=== PATIENT | female | born 1945 | race Caucasian/White ===

== ENCOUNTER → 2018-01-17 09:24 | Outpatient (CLI) | payer MEDICARE, OTHER, SELFPAY ==
[2018-01-17 10:34] LABS: Hemoglobin A1C% w Est Avg Glu 10.4 % (4.0-6.0)
[2018-01-17 11:27] LABS: Alanine Aminotransferase 15 IU/L (9-52); Aspartate Aminotransferase 12 IU/L (14-36); BUN Creatinine Ratio 21.8 (6-22); Blood Urea Nitrogen 24 mg/dL (7-17); Calcium 9.3 mg/dL (8.4-10.2); Carbon Dioxide 24 mmol/L (22-32); Chloride 101 mmol/L (98-107); Cholesterol 199 mg/dL (140-199); Glucose 204 mg/dL (80-110); HDL Cholesterol 51 mg/dL (40-60); HEMOLYSIS < 15 (0-50); LDL Cholesterol Calculated 98 mg/dL (<100); Potassium 4.9 mmol/L (3.4-5.1); Sodium 139 mmol/L (137-145); Triglycerides 248 mg/dL (35-150)
== END ==
PROVIDERS: Family Provider Internal Medicine; PCP Internal Medicine; Visit Provider Internal Medicine
DX: I10 Essential (primary) hypertension (principal); E11.9 Type 2 diabetes mellitus without complications; E78.5 Hyperlipidemia, unspecified
CPT/HCPCS: 36415; 80048; 80061; 83036; 84450; 84460

== ENCOUNTER → 2018-02-16 13:50 | Outpatient (CLI) | payer MEDICARE, OTHER, SELFPAY | PROVIDERS: PCP Internal Medicine; Visit Provider Internal Medicine | DX: M81.0 Age-related osteoporosis without current pathological fracture (principal); Z78.0 Asymptomatic menopausal state; E11.9 Type 2 diabetes mellitus without complications | CPT/HCPCS: 77080 ==

== ENCOUNTER → 2018-04-20 09:35 | Outpatient (CLI) | payer MEDICARE, OTHER, SELFPAY ==
[2018-04-20 10:27] LABS: Alanine Aminotransferase 18 IU/L (9-52); Aspartate Aminotransferase 12 IU/L (14-36); Blood Urea Nitrogen 30 mg/dL (7-17); Calcium 9.3 mg/dL (8.4-10.2); Carbon Dioxide 19 mmol/L (22-32); Chloride 107 mmol/L (98-107); Cholesterol 200 mg/dL (140-199); Estimated Glomerular Filt Rate 44.2 mL/min (>60); Glucose 183 mg/dL (80-110); HDL Cholesterol 50 mg/dL (40-60); HEMOLYSIS < 15 (0-50); LDL Cholesterol Calculated 115 mg/dL (<100); Sodium 137 mmol/L (137-145); Triglycerides 175 mg/dL (35-150)
[2018-04-20 10:30] LABS: Hemoglobin A1C% w Est Avg Glu 6.9 % (4.0-6.0)
[2018-04-20 11:08] LABS: Potassium 5.5 mmol/L (3.4-5.1)
== END ==
PROVIDERS: PCP Internal Medicine; Visit Provider Internal Medicine
DX: E78.5 Hyperlipidemia, unspecified (principal); E11.9 Type 2 diabetes mellitus without complications; I10 Essential (primary) hypertension
CPT/HCPCS: 36415; 80048; 80061; 83036; 84450; 84460

== ENCOUNTER → 2018-12-11 10:21 | Outpatient (CLI) | payer MEDICARE, OTHER, SELFPAY ==
[2018-12-11 11:32] LABS: Hemoglobin A1C% w Est Avg Glu 7.1 % (4.0-6.0)
[2018-12-11 12:05] LABS: Alanine Aminotransferase 8 IU/L (9-52); Aspartate Aminotransferase 15 IU/L (14-36); BUN Creatinine Ratio 22.3 (6-22); Blood Urea Nitrogen 29 mg/dL (7-17); Calcium 9.8 mg/dL (8.4-10.2); Carbon Dioxide 18 mmol/L (22-32); Chloride 111 mmol/L (98-107); Cholesterol 145 mg/dL (140-199); Estimated Glomerular Filt Rate 40.3 mL/min (>60); Glucose 126 mg/dL (80-110); HDL Cholesterol 43 mg/dL (40-60); HEMOLYSIS < 15 (0-50); LDL Cholesterol Calculated 69 mg/dL (<100); Sodium 140 mmol/L (137-145); Triglycerides 163 mg/dL (35-150)
[2018-12-11 12:21] LABS: Potassium 5.9 mmol/L (3.4-5.1)
== END ==
PROVIDERS: PCP Internal Medicine; Visit Provider Internal Medicine
DX: I10 Essential (primary) hypertension (principal); E78.5 Hyperlipidemia, unspecified; E11.9 Type 2 diabetes mellitus without complications
CPT/HCPCS: 36415; 80048; 80061; 83036; 84450; 84460

== ENCOUNTER → 2019-09-25 11:25 | Outpatient (CLI) | payer MEDICARE, OTHER, SELFPAY ==
[2019-09-25 13:17] LABS: Hemoglobin A1C% w Est Avg Glu 7.1 % (4.0-6.0)
[2019-09-25 13:25] LABS: Alanine Aminotransferase 8 IU/L (<35); Albumin 4.1 g/dL (3.5-5.0); Albumin Globulin Ratio 1.5 (1.0-2.8); Alkaline Phosphatase 82 U/L (38-126); Aspartate Aminotransferase 15 IU/L (14-36); BUN Creatinine Ratio 19.3 (6-22); Bilirubin Total 0.4 mg/dL (0.2-1.3); Blood Urea Nitrogen 26 mg/dL (7-17); Calcium 9.6 mg/dL (8.4-10.2); Carbon Dioxide 25 mmol/L (22-32); Chloride 105 mmol/L (98-107); Cholesterol 172 mg/dL (140-199); Estimated Glomerular Filt Rate 38.4 mL/min (>60); Globulin 2.7 g/dL (1.7-4.1); Glucose 167 mg/dL (80-110); HDL Cholesterol 53 mg/dL (40-60); HEMOLYSIS < 15 (0-50); LDL Cholesterol Calculated 77 mg/dL (<100); Sodium 139 mmol/L (137-145); Total Protein 6.8 g/dL (6.3-8.2); Triglycerides 212 mg/dL (35-150)
[2019-09-25 13:28] LABS: Potassium 5.8 mmol/L (3.4-5.1)
== END ==
PROVIDERS: PCP Internal Medicine; Referring Provider Internal Medicine; Visit Provider Internal Medicine
DX: E11.21 Type 2 diabetes mellitus with diabetic nephropathy (principal); I10 Essential (primary) hypertension; E78.5 Hyperlipidemia, unspecified
CPT/HCPCS: 36415; 80053; 80061; 83036; 86900; 86901

== ENCOUNTER 2021-04-10 20:44 | Emergency (ER) | payer MEDICARE, OTHER, SELFPAY ==
[2021-04-10 20:54] VITALS: BP 206/89; PULSE 91; RESP 16; TEMP 36.9; O2SAT 97; BMI 31.1
--- NOTE | 2021-04-10 21:14 | ED_ITS ---
HPI - Recheck/Abnormal Lab/Rx General Chief Complaint: Recheck/Abnormal Lab/Rx Stated Complaint: high potassium, sent by nurse Time Seen by Provider: 04/10/21 21:00 History of Present Illness HPI narrative: 75-year-old female nonsmoker with history of solitary kidney presents at the request of her primary care team for evaluation and treatment of elevated potassium. The patient reports that she has been asymptomatic and continues to be asymptomatic. She had outpatient labs which initially reported a potassium over 6. She denies dizziness, weakness or lightheadedness. She denies chest pain, shortness of breath. She has had no nausea, vomiting or diarrhea, she has had no urinary complaints such as dysuria, frequency or urgency She denies any extremity cramping. She states that she had a slightly different diet in the days prior to her abnormal labs which she questions may have contributed. She was sent here for evaluation. Review of Systems Review of Systems Narrative: GENERAL: Denies chills, fatigue, malaise, fever, sweats. HEENT: Denies sinus pain, ear pain, sore throat, difficulty swallowing, dizziness. RESPIRATORY: Denies dyspnea, cough, wheezing, hemoptysis, sputum. CARDIOVASCULAR: Denies chest pain, palpitations, orthopnea, edema, GASTROINTESTINAL: Denies nausea, vomiting, abdominal pain, diarrhea, constipation, melena. : Denies dysuria, frequency, incontinence, hematuria, urinary retention. MUSCULOSKELETAL: denies weakness, joint pain, or bony pain SKIN: Denies rash, skin lesions, or other NEUROLOGIC: Denies weakness, headache, numbness, change in speech, confusion, seizures, incoordination. PSYCHIATRIC: No concerning psychosocial issues. 12 point review of systems is negative except for those stated above Patient History Social History Smoking Status: Never smoker Smoking Status: Never smoker alcohol intake frequency: holidays/special occasions only Substance Use Type: does not use Exam Narrative Exam Narrative: GENERAL: [75] year old patient appears stated age. Well-developed patient, in mild distress. HEAD: Atraumatic. Normocephalic. EYES: Pupils equal round and reactive. Extraocular motions intact. No scleral icterus. No injection or drainage. ENT: Nose without bleeding, purulent drainage. Throat without erythema, tonsillar hypertrophy or exudate. Airway patent. NECK: Trachea midline. Non tender CARDIOVASCULAR: Regular rate and rhythm without murmurs, gallops, or rubs. RESPIRATORY: Clear to auscultation. Breath sounds equal bilaterally. No wheezes, rales, or rhonchi. GASTROINTESTINAL: Abdomen soft, non-tender, nondistended. EXTREMITIES: No edema or joint tenderness. BACK: Nontender without deformity or crepitance. No flank tenderness. NEURO: AOx3. SKIN: No rash or erythema of visible areas Initial Vital Signs Initial Vital Signs: Vital Signs Temperature 98.4 F 04/10/21 20:54 Pulse Rate 91 H 04/10/21 20:54 Respiratory Rate 16 04/10/21 20:54 Blood Pressure 206/89 H 04/10/21 20:54 Pulse Oximetry 97 04/10/21 20:54 Course Orders Ordered: ED Orders 04/10/21 21:07 CMP [Comprehensive Metabolic Panel] Stat Complete Blood Count AUTO DIFF Stat 04/10/21 21:24 EKG-12 Lead Stat Vital Signs Vital signs: Vital Signs - 8 hr 04/10/21 20:54 Temperature 98.4 F Pulse Rate 91 H Respiratory Rate 16 Blood Pressure 206/89 H Pulse Oximetry 97 MDM - Recheck/Abnormal Lab/Rx Lab Data Result diagrams: 04/10/21 21:07 04/10/21 21:07 Labs: Lab Results 04/10/21 04/10/21 Range/Units 21:07 21:07 WBC 9.1 (4.5-11.0) X10^3/uL RBC 3.60 L (4.0-5.2) X10^6/uL Hgb 7.8 L (12.0-16.0) g/dL Hct 25.3 L (36-46) % MCV 70.1 L (80-100) fL MCH 21.7 L (26-34) PG MCHC 30.9 (30-36) % RDW 17.5 H (11.6-14.8) % Plt Count 371 (150-400) X10^3/uL Neut % (Auto) 74.7 (50-75) % Lymph % (Auto) 15.4 L (25-40) % [place] % (Auto) 6.0 (3-14) % Eos % (Auto) 1.8 L (2-4) % Baso % (Auto) 2.1 H (0-2) % Neut # (Auto) 6800 (5063-3726) /uL Lymph # (Auto) 1400 (5858-4098) /uL [place] # (Auto) 500 (0-900) /uL Eos # (Auto) 200 (0-450) /uL Baso # (Auto) 200 H (0-100) /uL Sodium 136 L (137-145) mmol/L Potassium 5.4 H (3.4-5.1) mmol/L Chloride 107 (98-107) mmol/L Carbon Dioxide 23 (22-32) mmol/L BUN 27 H (7-17) mg/dL Creatinine 1.48 H (0.52-1.04) mg/dL Estimated GFR 34.5 L (>60) mL/min BUN/Creatinine Ratio 18.2 (6-22) Glucose 258 H (80-110) mg/dL Calcium 8.8 (8.4-10.2) mg/dL Total Bilirubin 0.2 (0.2-1.3) mg/dL AST 16 (14-36) IU/L ALT 9 (<35) IU/L Alkaline Phosphatase 72 (38-126) U/L Total Protein 7.4 (6.3-8.2) g/dL Albumin 4.3 (3.5-5.0) g/dL Globulin 3.1 (1.7-4.1) g/dL Albumin/Globulin Ratio 1.4 (1.0-2.8) MDM Narrative Medical decision making narrative: Patient has very reassuring history and physical exam. She has been asymptomatic and continues to be. EKG shows no suggestion of hyperkalemia. R epeat serum potassium is only 5.4, remainder of labs unremarkable. There is no indication for treatment of potassium at this level. Extensive return precautions discussed, questions answered to her apparent satisfaction Discharge Plan Departure Patient Disposition: Home Clinical Impression: Feared complaint without diagnosis Instructions: DI for Hyperkalemia Activity Restrictions/Additional Instructions: *You have been diagnosed with [very mild hyperkalemia. No treatment indicated *What to do: *Please continue to take your regular medications as directed. [ ] New medication prescriptions sent to your pharmacy: [ ] [ ] New medication written as a paper prescription [ ] No new medications given *Please follow up with your primary care provider in 2-3 days, call for an appointment. Let them know you were seen in the Emergency Department and that we ask that you be seen in follow up. We will electronically transmit a record of today's note if your PCP is in our system *If you do not have a primary care provider please contact the [facility] Resource line at [phone]. They will ask some questions about your medical history and help get you set up with a doctor in the community. *Return to Emergency Department if you should have any new, worsening or concerning symptoms, such as [fever greater than 101 F, shaking chills, worseni ng pain, persistent vomiting or other bothersome symptoms] Referrals: Sandrine Nguyễn MD [Primary Care Provider] -
[2021-04-10 21:22] LABS: Add Manual Diff / Slide Review NO; Basophils Absolute Auto 200 /uL (0-100); Basophils Percent Auto 2.1 % (0-2); Eosinophils Absolute Auto 200 /uL (0-450); Eosinophils Percent Auto 1.8 % (2-4); Hematocrit 25.3 % (36-46); Hemoglobin 7.8 g/dL (12.0-16.0); Lymphocytes Absolute Auto 1400 /uL (1100-4500); Lymphocytes Percent Auto 15.4 % (25-40); Mean Corpuscular HGB Conc 30.9 % (30-36); Mean Corpuscular Hemoglobin 21.7 PG (26-34); Mean Corpuscular Volume 70.1 fL (80-100); Monocytes Absolute Auto 500 /uL (0-900); Neutrophils Absolute Auto 6800 /uL (1500-7000); Neutrophils Percent Auto 74.7 % (50-75); Platelet Count 371 X10^3/uL (150-400); Red Cell Distribution Width 17.5 % (11.6-14.8); White Blood Cell Count 9.1 X10^3/uL (4.5-11.0)
[2021-04-10 21:28] LABS: Alanine Aminotransferase 9 IU/L (<35); Albumin 4.3 g/dL (3.5-5.0); Albumin Globulin Ratio 1.4 (1.0-2.8); Alkaline Phosphatase 72 U/L (38-126); Aspartate Aminotransferase 16 IU/L (14-36); BUN Creatinine Ratio 18.2 (6-22); Bilirubin Total 0.2 mg/dL (0.2-1.3); Blood Urea Nitrogen 27 mg/dL (7-17); Calcium 8.8 mg/dL (8.4-10.2); Carbon Dioxide 23 mmol/L (22-32); Chloride 107 mmol/L (98-107); Estimated Glomerular Filt Rate 34.5 mL/min (>60); Globulin 3.1 g/dL (1.7-4.1); Glucose 258 mg/dL (80-110); HEMOLYSIS < 15 (0-50); Potassium 5.4 mmol/L (3.4-5.1); Sodium 136 mmol/L (137-145); Total Protein 7.4 g/dL (6.3-8.2)
== END 2021-04-10 22:27 | disposition home or self-care (01) ==
PROVIDERS: Emergency Provider Emergency Medicine; PCP Internal Medicine
DX: E87.5 Hyperkalemia (principal); R03.0 Elevated blood-pressure reading, without diagnosis of hypertension
CPT/HCPCS: 36415; 80053; 85025; 93005; 99283

== ENCOUNTER 2022-09-13 09:43 | Inpatient (IN) | payer MEDICARE, OTHER, SELFPAY ==
[2022-09-13] VITALS (18 sets, daily range): BP systolic 144–190; BP diastolic 57–83; PULSE 76–102; RESP 18–39; TEMP 36.4–37.4; O2SAT 93–100; BMI 31.1
--- NOTE | 2022-09-13 09:51 | DI.RAD.S_ITS ---
PROCEDURE: XR CHEST 1V INDICATIONS: Shortness of breath TECHNIQUE: One view of the chest was acquired. COMPARISON: None. FINDINGS: Surgical changes and devices: Surgical clips are seen projecting over the upper abdomen. Lungs and pleura: Small bilateral pleural effusions with atelectasis or consolidation of the lung bases. No pneumothorax. Mediastinum: Cardiac silhouette is borderline enlarged. Bones and chest wall: No suspicious bony lesions. Overlying soft tissues appear unremarkable. IMPRESSION: Small bilateral pleural effusions with atelectasis or consolidation of the lung bases. Approved by: Sudheer Cardenas M.D. on 09/13/2022 at 10:23
--- NOTE | 2022-09-13 10:06 | ED.SOB ---
HPI - SOB/Dyspnea General Chief Complaint: Shortness of Breath/Dyspnea Stated Complaint: breathing problems Time Seen by Provider: 09/13/22 09:52 Source: patient and family Mode of arrival: Ambulatory History of Present Illness HPI Narrative: 77-year-old female nonsmoker with history of hypertension, diabetes, hyperlipidemia presents with increasing shortness of breath with exertion over the past few days. She states minimal exertion makes her quite winded and she is having increasing trouble catching her breath and it is taking longer. She states that she can not lay flat because she becomes significantly short of breath and has swelling in both of her legs. She denies any chest pain. She is not dizzy, weak or lightheaded. She denies nausea or vomiting and has no trouble urinating. She denies recent travel, history of known cancer or any recent injuries. She has chronic anemia but has never required transfusion. she denies any blood in her urine and has had no dark and tarry stools. Related Data Home Medications Medication Instructions Recorded Confirmed amlodipine 5 mg tablet 5 mg PO DAILY 09/13/22 09/13/22 atorvastatin 40 mg tablet 40 mg PO DAILY 09/13/22 09/13/22 glipizide 5 mg tablet mg PO 09/13/22 lisinopril 40 mg tablet 40 mg PO DAILY 09/13/22 09/13/22 metformin 1,000 mg tablet 1,000 mg PO BID 09/13/22 09/13/22 Allergies Allergy/AdvReac Type Severity Reaction Status Date / Time No Known Drug Allergies Allergy Verified 09/13/22 09:53 Review of Systems Review of Systems Narrative: GENERAL: Denies chills, fatigue, malaise, fever, sweats. HEENT: Denies sinus pain, ear pain, sore throat, difficulty swallowing, dizziness. RESPIRATORY: See HPI CARDIOVASCULAR: See HPI GASTROINTESTINAL: Denies nausea, vomiting, abdominal pain, diarrhea, constipation, melena. : Denies dysuria, frequency, incontinence, hematuria, urinary retention. MUSCULOSKELETAL: denies weakness, joint pain, or bony pain SKIN: Denies rash, skin lesions, or other NEUROLOGIC: Denies weakness, headache, numbness, change in speech, confusion, seizures, incoordination. PSYCHIATRIC: No concerning psychosocial issues. 12 point review of systems is negative except for those stated above Patient History Social History Smoking Status: Never smoker Smoking Status: Never smoker alcohol intake frequency: holidays/special occasions only Substance Use Type: does not use Exam Narrative Exam Narrative: GENERAL: [77] year old patient appears stated age. Well-developed patient, in obvious distress, conversationally dyspneic, minimal exertion drop sats into the upper 80. HEAD: Atraumatic. Normocephalic. EYES: Pupils equal round and reactive. Extraocular motions intact. No scleral icterus. No injection or drainage. ENT: Nose without bleeding, purulent drainage. Throat without erythema, tonsillar hypertrophy or exudate. Airway patent. NECK: Trachea midline. Non tender CARDIOVASCULAR: Regular rate and rhythm without murmurs, gallops, or rubs. RESPIRATORY: Increased work of breathing with minimal exertion, returns to baseline after a few minutes, crackles in bilateral bases GASTROINTESTINAL: Abdomen soft, non-tender, nondistended. EXTREMITIES: 1+ pitting edema bilateral lower extremities RECTAL: Heme-negative, performed with patient permission and female nursing technical documentation specialist at the bedside BACK: Nontender without deformity or crepitance. No flank tenderness. NEURO: AOx3. SKIN: No rash or erythema of visible areas Initial Vital Signs Initial Vital Signs: Vital Signs Pulse Rate 100 H 09/13/22 09:49 Respiratory Rate 35 H 09/13/22 09:49 Pulse Oximetry 97 09/13/22 09:49 Course Orders Ordered: ED Orders 09/13/22 09:50 Complete Blood Count AUTO DIFF Stat Comprehensive Metabolic Panel Stat D Dimer Stat Lactate (Lactic Acid) Stat NT-proBNP (BNP-Adult 18+) Stat Prothrombin Time INR Stat Troponin I Stat 09/13/22 09:51 XR chest 1V Stat EKG-12 Lead Stat Measure peak expiratory flow ONCE RT Consult Eval and Treat NOW 09/13/22 10:52 CT angio chest PE protocol Stat 09/13/22 11:00 Type and Screen Stat transfuse [Packed Cells] Stat Discontinued Medications Furosemide (Furosemide 40 Mg/4 Ml Vial) 40 mg IV NOW ONE Stop: 09/13/22 12:08 Last Admin: 09/13/22 12:10 Dose: 40 mg Vital Signs Vital signs: Vital Signs - 8 hr 09/13/22 09:51 09/13/22 09:49 09/13/22 10:00 Temperature 97.9 F Pulse Rate 102 H 100 H 83 Respiratory Rate 18 35 H 31 H Blood Pressure 165/77 H Pulse Oximetry 97 97 97 Oxygen Delivery Method Room Air 09/13/22 10:30 09/13/22 11:00 09/13/22 11:30 Temperature Pulse Rate 83 82 76 Respiratory Rate 32 H 33 H 29 H Blood Pressure Pulse Oximetry 94 98 100 Oxygen Delivery Method 09/13/22 11:34 09/13/22 11:34 09/13/22 12:00 Temperature Pulse Rate 78 102 H Respiratory Rate 27 H 38 H Blood Pressure 160/68 H Pulse Oximetry 96 100 Oxygen Delivery Method 09/13/22 12:01 09/13/22 12:01 09/13/22 12:17 Temperature 97.6 F Pulse Rate 98 H 84 Respiratory Rate 39 H 20 Blood Pressure 190/83 H 160/69 H Pulse Oximetry 99 Oxygen Delivery Method MDM - SOB/Dyspnea Lab Data 09/13/22 09:50 09/13/22 09:50 Labs: Lab Results 09/13/22 09/13/22 09/13/22 Range/Units 09:50 09:50 09:50 WBC 7.0 (4.5-11.0) X10^3/uL RBC 3.31 L (4.0-5.2) X10^6/uL Hgb 6.0 L* (12.0-16.0) g/dL Hct 19.8 L* (36-46) % MCV 60.0 L (80-100) fL MCH 18.2 L (26-34) PG MCHC 30.3 (30-36) % RDW 19.1 H (11.6-14.8) % Plt Count 497 H (150-400) X10^3/uL Neut % (Auto) 77.4 H (50-75) % Lymph % (Auto) 14.2 L (25-40) % [place] % (Auto) 5.7 (3-14) % Eos % (Auto) 0.7 L (2-4) % Baso % (Auto) 2.0 (0-2) % Neut # (Auto) 5400 (0949-0897) /uL Lymph # (Auto) 1000 L (7612-0789) /uL [place] # (Auto) 400 (0-900) /uL Eos # (Auto) 100 (0-450) /uL Baso # (Auto) 100 (0-100) /uL RBC Morphology See below Hypochromasia 1+ H Anisocytosis 2+ H Microcytosis 2+ H Target Cells 1+ H Ovalocytes 2+ H Acanthocytes (Spur) 1+ H Rouleaux 1+ H Schistocytes 1+ H PT 12.6 (10.1-12.7) SECONDS INR 1.1 (0.9-1.3) D-Dimer (<500) ng/ml Sodium 136 L (137-145) mmol/L Potassium 4.9 (3.4-5.1) mmol/L Chloride 109 H (98-107) mmol/L Carbon Dioxide 15 L (22-32) mmol/L BUN 27 H (7-17) mg/dL Creatinine 1.65 H (0.52-1.04) mg/dL Estimated GFR 32 L (>60) mL/min BUN/Creatinine Ratio 16.4 (6-22) Glucose 138 H (80-110) mg/dL Lactate (0.7-2.1) mmol/L Calcium 8.7 (8.4-10.2) mg/dL Total Bilirubin 0.5 (0.2-1.3) mg/dL AST 17 (14-36) IU/L ALT 16 (<35) IU/L Alkaline Phosphatase 85 (38-126) U/L Troponin I 0.012 (0.01-0.034) ng/mL NT-Pro-B Natriuret Pep 78285 H (<450) pg/mL Total Protein 7.1 (6.3-8.2) g/dL Albumin 4.1 (3.5-5.0) g/dL Globulin 3.0 (1.7-4.1) g/dL Albumin/Globulin Ratio 1.4 (1.0-2.8) Blood Type Antibody Screen Crossmatch 09/13/22 09/13/22 09/13/22 Range/Units 09:50 09:50 11:00 WBC (4.5-11.0) X10^3/uL RBC (4.0-5.2) X10^6/uL Hgb (12.0-16.0) g/dL Hct (36-46) % MCV (80-100) fL MCH (26-34) PG MCHC (30-36) % RDW (11.6-14.8) % Plt Count (150-400) X10^3/uL Neut % (Auto) (50-75) % Lymph % (Auto) (25-40) % [place] % (Auto) (3-14) % Eos % (Auto) (2-4) % Baso % (Auto) (0-2) % Neut # (Auto) (4814-8208) /uL Lymph # (Auto) (5141-6963) /uL [place] # (Auto) (0-900) /uL Eos # (Auto) (0-450) /uL Baso # (Auto) (0-100) /uL RBC Morphology Hypochromasia Anisocytosis Microcytosis Target Cells Ovalocytes Acanthocytes (Spur) Rouleaux Schistocytes PT (10.1-12.7) SECONDS INR (0.9-1.3) D-Dimer 1131 H (<500) ng/ml Sodium (137-145) mmol/L Potassium (3.4-5.1) mmol/L Chloride (98-107) mmol/L Carbon Dioxide (22-32) mmol/L BUN (7-17) mg/dL Creatinine (0.52-1.04) mg/dL Estimated GFR (>60) mL/min BUN/Creatinine Ratio (6-22) Glucose (80-110) mg/dL Lactate 2.1 (0.7-2.1) mmol/L Calcium (8.4-10.2) mg/dL Total Bilirubin (0.2-1.3) mg/dL AST (14-36) IU/L ALT (<35) IU/L Alkaline Phosphatase (38-126) U/L Troponin I (0.01-0.034) ng/mL NT-Pro-B Natriuret Pep (<450) pg/mL Total Protein (6.3-8.2) g/dL Albumin (3.5-5.0) g/dL Globulin (1.7-4.1) g/dL Albumin/Globulin Ratio (1.0-2.8) Blood Type A Positive Antibody Screen Negative Crossmatch See Detail ECG Data Interpretation: [0957] EKG is normal sinus rhythm rate [84 ] and free of any signs of ischemia or ectopy. No ST segmental elevation or depression. No T wave inversions MDM Narrative Medical decision making narrative: CC: 77-year-old female presents with increasing shortness of breath, exertional dyspnea, orthopnea, leg swelling Complicating co-morbidities: Hypertension, hyperlipidemia, diabetes, chronic renal failure Data collected from: Patient Medical records reviewed: Prior notes reviewed in our EMR Differential considered, but not limited to: Acute CHF versus anemia versus renal failure versus electrolyte abnormality versus pneumonia versus pulmonary embolism versus other Exam documented above, pertinent findings include: Conversational dyspnea, significant shortness of breath with minimal exertion, crackles in bases, edema in lower extremities Lab Test results independently reviewed as above. Pertinent findings: No leukocytosis or left shift, hemoglobin 6.0, hematocrit 19.8, MCV 60, D-dimer 1131, creatinine 1.65 slightly up from her baseline, initial lactate 2.1, BNP 48280 Independently reviewed EKG as above Imaging studies independently reviewed: Chest x-ray demonstrates small bilateral pleural effusions, CT angiogram demonstrates no pulmonary embolism but does demonstrate a CHF pattern Consultations: Hospitalist happy to accept patient on her service Treatments: Transfusion of 2 units, Lasix 40 mg IVP Discussion: Patient with increasing shortness of breath over the past few days, exertional dyspnea, orthopnea, swelling in her lower extremities, crackles in her bases and imaging suggestive of pulmonary edema along with BNP elevated. She is never had the diagnosis of CHF as far as she can tell. Though not hypoxemic at rest minimal exertion causes her significant distress and her pulse ox drops into the mid to upper 80s. She has chronic anemia which she states is from her bad kidneys but has never been transfused. Today her hemoglobin is 6, she has no evidence of bleeding on rectal exam. She does have a critically elevated D-dimer and given her appearance of new onset CHF and associated shortness of breath we did discuss the utility of performing a CT angiogram and after discussion of the risks and benefits with known kidney disease we elect to perform the study as it has the potential to drastically change plan. Thankfully there is no evidence of a pulmonary embolism. Patient requires hospitalization for further characterization and stabilization of her condition. She and understand the diagnosis and plan Discharge Plan Departure Patient Disposition: Admitted As Inpatient Clinical Impression: Acute CHF, Symptomatic anemia, Acute on chronic renal failure Admit Date/Time: 09/13/22 12:38 Admit Provider: Betty Roach
[2022-09-13 10:16] LABS: Basophils Absolute Auto 100 /uL (0-100); Eosinophils Absolute Auto 100 /uL (0-450); Eosinophils Percent Auto 0.7 % (2-4); Lymphocytes Absolute Auto 1000 /uL (1100-4500); Lymphocytes Percent Auto 14.2 % (25-40); Mean Corpuscular HGB Conc 30.3 % (30-36); Mean Corpuscular Hemoglobin 18.2 PG (26-34); Monocytes Absolute Auto 400 /uL (0-900); Monocytes Percent Auto 5.7 % (3-14); Neutrophils Absolute Auto 5400 /uL (1500-7000); Neutrophils Percent Auto 77.4 % (50-75); Platelet Count 497 X10^3/uL (150-400); Red Blood Cell Count 3.31 X10^6/uL (4.0-5.2); Red Cell Distribution Width 19.1 % (11.6-14.8)
[2022-09-13 10:20] LABS: Alanine Aminotransferase 16 IU/L (<35); Albumin 4.1 g/dL (3.5-5.0); Albumin Globulin Ratio 1.4 (1.0-2.8); Alkaline Phosphatase 85 U/L (38-126); Aspartate Aminotransferase 17 IU/L (14-36); BUN Creatinine Ratio 16.4 (6-22); Bilirubin Total 0.5 mg/dL (0.2-1.3); Blood Urea Nitrogen 27 mg/dL (7-17); Calcium 8.7 mg/dL (8.4-10.2); Carbon Dioxide 15 mmol/L (22-32); Chloride 109 mmol/L (98-107); Estimated Glomerular Filt Rate 32 mL/min (>60); Glucose 138 mg/dL (80-110); HEMOLYSIS < 15 (0-50); Potassium 4.9 mmol/L (3.4-5.1); Sodium 136 mmol/L (137-145); Total Protein 7.1 g/dL (6.3-8.2)
[2022-09-13 10:21] LABS: Lactate (Lactic Acid) 2.1 mmol/L (0.7-2.1)
[2022-09-13 10:25] LABS: Hematocrit 19.8 % (36-46); INR 1.1 (0.9-1.3); Prothrombin Time 12.6 SECONDS (10.1-12.7)
[2022-09-13 10:26] LABS: Add Manual Diff / Slide Review SLIDE REVIEW
[2022-09-13 10:29] LABS: NT-proBNP (BNP-Adult 18+) 17500 pg/mL (<450)
[2022-09-13 10:33] LABS: Anisocytosis 2+; Microcytosis 2+; Ovalocytes 2+; Target Cells 1+
[2022-09-13 10:34] LABS: Schistocytes 1+
[2022-09-13 10:35] LABS: Hypochromasia 1+
[2022-09-13 10:36] LABS: Acanthocytes 1+; Rouleaux 1+
[2022-09-13 10:39] LABS: D Dimer 1131 ng/ml (<500)
[2022-09-13 10:45] LABS: Troponin I 0.012 ng/mL (0.01-0.034)
--- NOTE | 2022-09-13 10:52 | DI.CT.S_ITS ---
PROCEDURE: CT ANGIO CHEST PE PROTOCOL INDICATIONS: tachycardia, SOB, critical dimer TECHNIQUE: After the administration of intravenous contrast, 2 mm thick sections acquired from the pulmonary apices to the posterior costophrenic angles. 3-dimensional maximum intensity projection (MIP) coronal and sagittal reformats were then acquired through the thorax. For radiation dose reduction, the following was used: automated exposure control, adjustment of mA and/or kV according to patient size. COMPARISON: None. FINDINGS: Image quality: Excellent. Pulmonary arteries: Pulmonary arteries are normal in size, and demonstrate no intraluminal filling defects to suggest central pulmonary embolism. Lungs and pleura: Moderate size bilateral pleural effusions. Bilateral upper lobe interstitial thickening. Subsegmental right middle lobe and lingular atelectatic change. No pneumothorax. Mediastinum: Numerous small mediastinal lymph nodes throughout. Mild subcarinal adenopathy. Confluent bilateral infrahilar soft tissue suggesting adenopathy. There are small periesophageal lymph nodes. The heart is mildly enlarged and demonstrates heavy coronary artery calcification. No pericardial effusion. The aorta is normal caliber. The esophagus demonstrates circumferential mid and distal wall thickening. No hiatal hernia. Bones and chest wall: No suspicious bony lesions. Midthoracic vertebral body hemangioma. Lower thoracic disc height loss. Ribs and thoracic spine appear intact throughout. Thyroid gland has a normal CT appearance. No axillary or supraclavicular adenopathy. Abdomen: Upper abdomen demonstrates surgical changes of possible partial right nephrectomy and nonspecific centrally hypodense soft tissue in the right medial renal fossa. Nodular thickening of the left adrenal gland. IMPRESSION: 1. No pulmonary embolus. 2. Moderate bilateral pleural effusions. This is nonspecific but given bilaterality, potentially related to volume overload/CHF. 3. Shotty mediastinal and confluent bilateral hilar adenopathy is also nonspecific. 4. Partially imaged surgical changes in the right retroperitoneum with possible residual soft tissue. Correlate with history of surgical intervention. Dictated by: Lien Leonard M.D. on 09/13/2022 at 11:41 Approved by: Lien Leonard M.D. on 09/13/2022 at 11:52
[2022-09-13 12:07] LABS: Reflexed Lactate in 2 Hours Y
[2022-09-13] MEDS: FUROSEMIDE 40 MG/4 ML VIAL IV (12:10)
[2022-09-13 12:48] LABS: Lactate 2HR (Lactic Acid Rflx) 1.5 mmol/L (0.7-2.1)
--- NOTE | 2022-09-13 14:22 | PM.HP.1 ---
History of Present Illness History of Present Illness Date Patient Seen: 09/13/22 Chief complaint: breathing problems Narrative: Gillian Patel is a 77-year-old female nonsmoker with history of hypertension, one kidney removal, diabetes, hyperlipidemia presented with increasing shortness of breath with exertion over the past few days.? She stated minimal exertion makes her quite winded and she was having increasing trouble catching her breath and it was taking longer.? She stated that she can not lay flat because she becomes significantly short of breath and has swelling in both of her legs.? She denied any chest pain.? She is not dizzy, weak or lightheaded.? She denied nausea or vomiting and has had no trouble urinating.? She denied recent travel, history of known cancer or any recent injuries.? She has chronic anemia but has never?required transfusion. ?She denied any blood in her urine and has had no dark and tarry stools. [facility] Social History household members: spouse Smoking Status: Never smoker alcohol intake: current Comment: Surgery includes tonsillectomy at age 4 months and 1 kidney removal secondary to an abscess. Fractures: Left 2nd toe and left thumb Type 2 diabetes Hypertension Hyperlipidemia Meds Home Medications and Allergies Home Medications Medication Instructions Recorded Confirmed Type amlodipine 5 mg tablet 5 mg PO DAILY 09/13/22 09/13/22 History atorvastatin 40 mg tablet 20 mg PO DAILY 09/13/22 09/13/22 History glipizide 5 mg tablet 20 mg PO DAILY 09/13/22 09/13/22 History lisinopril 40 mg tablet 40 mg PO DAILY 09/13/22 09/13/22 History metformin 1,000 mg tablet 1,000 mg PO BID 09/13/22 09/13/22 History Allergies Allergy/AdvReac Type Severity Reaction Status Date / Time No Known Drug Allergies Allergy Verified 09/13/22 09:53 Review of Systems Review of Systems Narrative: Fourteen system review was completed and pertinent findings in the history of chief complaint. Exam Vital Signs (past 8 hours): - 09/13/22 09:51 09/13/22 09:49 09/13/22 10:00 Temperature 97.9 F Pulse Rate 102 H 100 H 83 Respiratory Rate 18 35 H 31 H Blood Pressure 165/77 H Pulse Oximetry 97 97 97 Oxygen Delivery Method Room Air Oxygen Flow Rate 09/13/22 10:30 09/13/22 11:00 09/13/22 11:30 Temperature Pulse Rate 83 82 76 Respiratory Rate 32 H 33 H 29 H Blood Pressure Pulse Oximetry 94 98 100 Oxygen Delivery Method Oxygen Flow Rate 09/13/22 11:34 09/13/22 11:34 09/13/22 12:00 Temperature Pulse Rate 78 102 H Respiratory Rate 27 H 38 H Blood Pressure 160/68 H Pulse Oximetry 96 100 Oxygen Delivery Method Oxygen Flow Rate 09/13/22 12:01 09/13/22 12:01 09/13/22 12:17 Temperature 97.6 F Pulse Rate 98 H 84 Respiratory Rate 39 H 20 Blood Pressure 190/83 H 160/69 H Pulse Oximetry 99 Oxygen Delivery Method Oxygen Flow Rate 09/13/22 12:33 09/13/22 13:30 09/13/22 13:24 Temperature 98.1 F 98.6 F Pulse Rate 76 84 Respiratory Rate 21 18 Blood Pressure 144/65 H 168/79 H Pulse Oximetry 100 Oxygen Delivery Method Room Air Oxygen Flow Rate 0 Oxygen Delivery Method Room Air Oxygen Flow Rate 0 Narrative Exam Narrative: GENERAL: Appears stated age. Well-developed patient, in no acute medical distress at the time of my examination. HEAD: Atraumatic. Normocephalic. EYES: Pupils equal round and reactive. Extraocular motions intact. No scleral icterus. No injection or drainage. NECK: Trachea midline. Non tender CARDIOVASCULAR: Regular rate and rhythm without murmurs, gallops, or rubs. RESPIRATORY:? Adequate air entry throughout the lung león. Minimal crackles at the bases. GASTROINTESTINAL: Abdomen soft, non-tender, nondistended. EXTREMITIES:? 1+ pitting edema bilateral lower extremities RECTAL:? In the ER, Heme-negative, performed with patient permission and female nursing tax map technician at the bedside NEURO: AOx3. SKIN: No rash or erythema of visible areas Objective Labs 09/13/22 09:50 09/13/22 09:50 Labs: Laboratory Results - last 24 hr 09/13/22 09/13/22 09/13/22 09:50 09:50 09:50 WBC 7.0 RBC 3.31 L Hgb 6.0 L* Hct 19.8 L* MCV 60.0 L MCH 18.2 L MCHC 30.3 RDW 19.1 H Plt Count 497 H Neut % (Auto) 77.4 H Lymph % (Auto) 14.2 L [place] % (Auto) 5.7 Eos % (Auto) 0.7 L Baso % (Auto) 2.0 Neut # (Auto) 5400 Lymph # (Auto) 1000 L [place] # (Auto) 400 Eos # (Auto) 100 Baso # (Auto) 100 RBC Morphology See below Hypochromasia 1+ H Anisocytosis 2+ H Microcytosis 2+ H Target Cells 1+ H Ovalocytes 2+ H Acanthocytes (Spur) 1+ H Rouleaux 1+ H Schistocytes 1+ H PT 12.6 INR 1.1 D-Dimer Sodium 136 L Potassium 4.9 Chloride 109 H Carbon Dioxide 15 L BUN 27 H Creatinine 1.65 H Estimated GFR 32 L BUN/Creatinine Ratio 16.4 Glucose 138 H Lactate Calcium 8.7 Total Bilirubin 0.5 AST 17 ALT 16 Alkaline Phosphatase 85 Troponin I 0.012 NT-Pro-B Natriuret Pep 58253 H Total Protein 7.1 Albumin 4.1 Globulin 3.0 Albumin/Globulin Ratio 1.4 Blood Type Antibody Screen Crossmatch 09/13/22 09/13/22 09/13/22 09:50 09:50 11:00 WBC RBC Hgb Hct MCV MCH MCHC RDW Plt Count Neut % (Auto) Lymph % (Auto) [place] % (Auto) Eos % (Auto) Baso % (Auto) Neut # (Auto) Lymph # (Auto) [place] # (Auto) Eos # (Auto) Baso # (Auto) RBC Morphology Hypochromasia Anisocytosis Microcytosis Target Cells Ovalocytes Acanthocytes (Spur) Rouleaux Schistocytes PT INR D-Dimer 1131 H Sodium Potassium Chloride Carbon Dioxide BUN Creatinine Estimated GFR BUN/Creatinine Ratio Glucose Lactate 2.1 Calcium Total Bilirubin AST ALT Alkaline Phosphatase Troponin I NT-Pro-B Natriuret Pep Total Protein Albumin Globulin Albumin/Globulin Ratio Blood Type A Positive Antibody Screen Negative Crossmatch See Detail 09/13/22 12:20 WBC RBC Hgb Hct MCV MCH MCHC RDW Plt Count Neut % (Auto) Lymph % (Auto) [place] % (Auto) Eos % (Auto) Baso % (Auto) Neut # (Auto) Lymph # (Auto) [place] # (Auto) Eos # (Auto) Baso # (Auto) RBC Morphology Hypochromasia Anisocytosis Microcytosis Target Cells Ovalocytes Acanthocytes (Spur) Rouleaux Schistocytes PT INR D-Dimer Sodium Potassium Chloride Carbon Dioxide BUN Creatinine Estimated GFR BUN/Creatinine Ratio Glucose Lactate 1.5 Calcium Total Bilirubin AST ALT Alkaline Phosphatase Troponin I NT-Pro-B Natriuret Pep Total Protein Albumin Globulin Albumin/Globulin Ratio Blood Type Antibody Screen Crossmatch Assessment & Plan Assessment & Plan narrative: 1. Acute congestive heart failure. Present on admission. Treat with diuresis and initially furosemide 40 mg IV in the ER. Continue b.i.d. for 3 days and then transitioned to oral furosemide. Follow electrolytes and BNP. 2. Symptomatic anemia. Acute and present on admission. Transfusion with packed red blood cells. Follow labs. 3. Acute on chronic renal failure. Present on admission. Follow labs and treated as needed. 4. 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 Chronic and present on admission. Try to avoid nephrotoxic medication. 5. Shortness of breath with activity and orthopnea. Acute and present on admission. Continue to monitor. 6. Type 2 diabetes. Chronic and present on admission. Maintain patient's regular medication. 7. Hypertension. Chronic and present on admission. Maintain patient's regular medication. 8. Hyperlipidemia. Chronic and present on admission. Maintain patient's regular medication Admit to inpatient. Patient expected to be hospitalized greater than 2 midnights. Code status: Full code. DVT prophylaxis: Contraindicated due to severe anemia. Surrogate decision maker: Patient's Glynn Patel. COVID-19 COVID-19 status: Not tested Time Spent With Patient Time with patient: 70 minutes or more, with 50% spent counseling/coordinating Quality VTE Deep Vein Thrombosis/Pulmonary Embolism Present on Admission: No MIPS - Admit The patient?s Advance Care plan is not present because I confirmed today that the patient does not wish or was not able to name a surrogate decision maker or provide an Advance Care Plan.: Yes MIPS - Meds 'Current medications' to include all prescriptions, [id number] products, herbals, cannabis/cannabidiol products, and vitamin/mineral/dietary (nutritional) supplements. I have utilized all available resources to obtain, update, or review the patient?s current medications. [If Yes, STOP here]: Yes
[2022-09-13] MEDS: POTASSIUM CHLORIDE 20 MEQ TAB 40 MEQ PO (18:17)
[2022-09-13] MEDS: FUROSEMIDE 20 MG/2 ML VIAL 40 MG IV (20:12)
[2022-09-13] MEDS: SODIUM CHLORIDE 0.9% FLUSH 10 ML IV (20:53)
[2022-09-13] MEDS: MELATONIN 3 MG TABLET PO (20:53)
[2022-09-13] MEDS: SENNOSIDES 8.6 MG TABLET 17.2 MG PO (20:53)
[2022-09-14 00:20] VITALS: BP 147/72; PULSE 79; RESP 18; TEMP 37.3; O2SAT 94
[2022-09-14 04:27] VITALS: BP 151/68; PULSE 81; RESP 18; TEMP 36.8; O2SAT 96
[2022-09-14 04:43] LABS: Basophils Absolute Auto 100 /uL (0-100); Basophils Percent Auto 1.3 % (0-2); Eosinophils Absolute Auto 100 /uL (0-450); Eosinophils Percent Auto 1.2 % (2-4); Hemoglobin 8.7 g/dL (12.0-16.0); Lymphocytes Absolute Auto 2100 /uL (1100-4500); Lymphocytes Percent Auto 26.1 % (25-40); Mean Corpuscular HGB Conc 31.3 % (30-36); Mean Corpuscular Hemoglobin 20.1 PG (26-34); Mean Corpuscular Volume 64.2 fL (80-100); Monocytes Absolute Auto 700 /uL (0-900); Monocytes Percent Auto 8.8 % (3-14); Neutrophils Absolute Auto 5100 /uL (1500-7000); Neutrophils Percent Auto 62.6 % (50-75); Platelet Count 419 X10^3/uL (150-400); Red Blood Cell Count 4.33 X10^6/uL (4.0-5.2); Red Cell Distribution Width 26.2 % (11.6-14.8); White Blood Cell Count 8.2 X10^3/uL (4.5-11.0)
[2022-09-14 04:47] LABS: Add Manual Diff / Slide Review SLIDE REVIEW; Alanine Aminotransferase 14 IU/L (<35); Albumin 3.8 g/dL (3.5-5.0); Albumin Globulin Ratio 1.2 (1.0-2.8); Alkaline Phosphatase 72 U/L (38-126); Aspartate Aminotransferase 15 IU/L (14-36); BUN Creatinine Ratio 17.7 (6-22); Bilirubin Total 1.3 mg/dL (0.2-1.3); Blood Urea Nitrogen 32 mg/dL (7-17); Calcium 8.9 mg/dL (8.4-10.2); Carbon Dioxide 19 mmol/L (22-32); Chloride 107 mmol/L (98-107); Estimated Glomerular Filt Rate 29 mL/min (>60); Globulin 3.2 g/dL (1.7-4.1); Glucose 86 mg/dL (80-110); HEMOLYSIS < 15 (0-50); Hematocrit 27.8 % (36-46); Potassium 5.3 mmol/L (3.4-5.1); Sodium 136 mmol/L (137-145)
[2022-09-14 04:55] LABS: NT-proBNP (BNP-Adult 18+) 24800 pg/mL (<450)
--- NOTE | 2022-09-14 05:35 | PC.NURSE ---
a/o, voices needs. ind to/from bathroom w/ steady gait. lasix IV given at HS. diuresing well. breathing is improving. denies PC its from the lisinopril and recovers quickly after exertion of walking to/from bathroom. slept well thru the NOC. call light w/in reach.
[2022-09-14 08:00] VITALS: BP 145/62; PULSE 79; RESP 17; TEMP 36.8; O2SAT 98
--- NOTE | 2022-09-14 09:12 | CM.DANOTE ---
DCP Assessment Note: Patient is a 77yo F here under hospitalist care following breathing problems. PCP Sandrine Aguilera Medicare and Nubia GERARDOW reviewed EMR. Per nursing staff, patient's labs are getting worse but patient reports feeling better. SHEETROCK APPLICATOR entered room and introduced self and role. Patient was sitting up in bed and appeared A/Ox4. Patient lives with spouse Glynn ([phone]) and is active/independent and drives at baseline. Patient has 2 steps into her house, owns a wheelchair/shower seat but doesn't use either, and reports that she has been up and moving well. She reports not being interested in HH and reports no need for any other resources at this time. Plan: patient will d/c home when medically stable, transport with spouse in POV. CM team will continue to follow as needed. WILBERT Randall Discharge Planning/Care Management CM Discharge Assessment Start: 09/14/22 09:10 Freq: Status: Active Protocol: Document 09/14/22 09:11 (Rec: 09/14/22 09:12 [id number]) Discharge Planning Assessment Assigned Border Patrol Agent WILBERT Hunt DPOA/Assigned Designee Name Glynn Patel (spouse) Contact Information Advance Directives? No History Provided By Patient,Medical Record Prior Living Arrangements House Household Members spouse Type of transporation used prior to Drives own vehicle admit Independent with ADL's Yes Is patient alert and oriented? Yes DME Already Rented / Owned Bath Bench,Wheelchair Comment has equipment but does not use it and reports does not need it Barriers to Discharge No Discharge Plan Home Transportation Arrangement spouse in POV Whiteboard Updated in Patient Room with Yes name and ext. # of Border Patrol Agent Review Status In Process Next Review Type Continued Stay Review
[2022-09-14 12:00] VITALS: BP 150/70; PULSE 79; RESP 19; TEMP 36.6; O2SAT 100
--- NOTE | 2022-09-14 12:40 | DI.ECHO.S_ITS ---
[facility]---------+ [facility] +---------+ : : [address] : : : : [id number] : : : : Phone: [phone] Echocardiogram Report + + :Name: ANDREZ GAN Study Date: 09/14/2022 Height: 62 in : [facility] ReadingLocation: Weight: 170 lb : : Gender: Female BSA: 1.8 m2 : :: 1945 Age: 77 yrs BP: 150/70 mmHg: :Reason For Study: SHORTNESS OF BREATH : :Ordering Physician: CORA, : :EJN JOSÉ Performed By: Nhung Moreno : :Referring: JEN SHEPHERD : + + Interpretation Summary The left ventricle is mild-moderately dilated. The ejection fraction is estimated to be 20-25%. Grade II diastolic dysfunction. The left atrium is moderately dilated. The right ventricle is normal in size and function. There is moderate mitral regurgitation. There is trace aortic regurgitation. There is mild tricuspid regurgitation. The right ventricular systolic pressure is estimated to be at least 58 mmHg based on an estimated right atrial pressure of 8 mm Hg. There is a moderate left-sided pleural effusion. Procedure: A two-dimensional transthoracic echocardiogram with color flow and Doppler was performed. The study quality was technically adequate. There is no prior echocardiogram noted for this patient. The patient was in sinus rhythm with heart rates between 73-79 bpm during the exam. Left Ventricle: The left ventricle is mild-moderately dilated. The estimated left ventricular end diastolic volume is 119 ml. There is normal left ventricular wall thickness. The ejection fraction is estimated to be 20-25%. Diastolic parameters suggest a pseudonormalization pattern, consistent with probable elevated filling pressures. Right Ventricle: The right ventricle is normal in size and function. Atria: The left atrium is moderately dilated. Right atrial size is normal. There is no Doppler evidence for an interatrial shunt. Mitral Valve: The mitral valve leaflets appear borderline thickened, but open well. There is moderate mitral regurgitation. Aortic Valve: The aortic valve is trileaflet. The aortic valve opens well. There is no aortic valve stenosis. There is trace aortic regurgitation. Tricuspid Valve: The tricuspid valve is normal in structure and function. The right ventricular systolic pressure is estimated to be at least 58 mmHg based on an estimated right atrial pressure of 8 mm Hg. There is mild tricuspid regurgitation. Pulmonic Valve: The pulmonic valve leaflets are thin and pliable; valve motion is normal. There is trace pulmonic regurgitation. Great Vessels: The aortic root is normal size. The dimensions of the ascending aorta are normal. The IVC is dilated (diameter is greater than 2.1 cm) yet it collapses greater than 50% with a sniff. This suggests a right atrial pressure of 8 mm Hg. Pericardium/ Pleura There is no pericardial effusion. There is a moderate left-sided pleural effusion. MMode/2D Measurements & Calculations LVIDd: 5.5 cm LVOT diam: 2.1 cm LVIDs: 4.3 cm Ao root diam: 2.8 cm FS: 21.2 % asc Aorta Diam: 2.9 cm EPSS: 2.3 cm Ao Arch Diam (Prox Trans): 2.4 cm IVSd: 0.82 cm LVPWd: 0.96 cm LV mcgraw. diameter/BSA (cm/m^2): 3.1 LV sys. diameter/BSA (cm/m^2): 2.4 LA A2 area: 23.7 cm2 RA long axis: 3.8 cm LA A4 area: 23.3 cm2 RA area: 12.9 cm2 LA length (vol): 5.7 cm RA vol: 37.2 ml LA vol: 81.5 ml RA : 20.9 ml/m2 LA vol index: 45.7 ml/m2 IVC diam: 2.2 cm RVD1 (basal): 2.9 cm RVD2 (mid): 2.7 cm TAPSE: 1.7 cm Doppler Measurements & Calculations Ao V2 max: 144.9 cm/sec LVOT Max Tulio: 55.6 cm/sec Ao V2 mean: 106.6 cm/sec LV V1 max P.2 mmHg Ao max P.4 mmHg LV V1 VTI: 11.0 cm Ao mean P.9 mmHg ARMANDO(I,D): 1.4 cm2 Ao V2 VTI: 28.4 cm ARMANDO(V,D): 1.4 cm2 sev ratio: 0.39 ARMANDO indexed to BSA (cm^2/m^2): 0.78 MV E max tulio: 99.7 cm/sec TR max tulio: 355.3 cm/sec MV A max tulio: 78.2 cm/sec TR max P.5 mmHg MV E/A: 1.3 PA V2 max: 94.0 cm/sec Med Peak E' Tulio: 3.2 cm/sec PA V2 mean: 65.1 cm/sec E/E' med: 31.0 PA mean P.9 mmHg Lat Peak E' Tulio: 3.9 cm/sec PA pr(Accel): 48.2 mmHg E/E' lat: 25.6 E/e' average: 28.3 MV dec time: 0.18 sec MVA(VTI): 1.4 cm2 MV V2 mean: 66.2 cm/sec MR PISA: 3.4 cm2 MV mean P.0 mmHg MR flow rate: 126.7 cm3/sec MV V2 VTI: 27.7 cm MR PISA radius: 0.74 cm SV(LVOT): 39.7 ml Reading Physician:04:16 PM
[2022-09-14 16:00] VITALS: BP 141/62; PULSE 82; RESP 19; TEMP 36.3; O2SAT 98
--- NOTE | 2022-09-14 16:04 | PM.PN.1 ---
Subjective Subjective Interval history: 77 F with PMH of chronic anemia, solitary kidney admitted with acute on chronic anemia and shortness of breath. She reports intermittent palpitations, telemetry has been thus far unremarkable. Her predominant symptom today and recently over the month has been orthopnea. Her kidney function did not improve with diuresis this morning, furosemide was held. Pending repeat h/h and BMP and echocardiogram prior to deciding on if furosemide will be of benefit or not as volume status is not entirely clear at the moment. Stools were guaiac negative in the ER. Exam Vital Signs (past 8 hours): - 09/14/22 12:00 Temperature 97.8 F Pulse Rate 79 Respiratory Rate 19 Blood Pressure 150/70 H Pulse Oximetry 100 Oxygen Flow Rate 0 Oxygen Delivery Method Room Air Oxygen Flow Rate 0 Narrative Exam Narrative: GENERAL: Appears stated age. Well-developed patient, in no acute medical distress at the time of my examination. HEAD: Atraumatic. Normocephalic. EYES: Pupils equal round and reactive. Extraocular motions intact. No scleral icterus. No injection or drainage. NECK: Trachea midline. Non tender CARDIOVASCULAR: Regular rate and rhythm without murmurs, gallops, or rubs. RESPIRATORY:? Adequate air entry throughout the lung león. Minimal crackles at the bases. GASTROINTESTINAL: Abdomen soft, non-tender, nondistended. EXTREMITIES:? trace edema bilateral lower extremities NEURO: AOx3. SKIN: No rash or erythema of visible areas Objective Labs 09/14/22 04:17 09/14/22 04:17 Labs: Laboratory Results - last 24 hr 09/14/22 09/14/22 04:17 04:17 WBC 8.2 RBC 4.33 Hgb 8.7 L Hct 27.8 L MCV 64.2 L D MCH 20.1 L MCHC 31.3 RDW 26.2 H Plt Count 419 H Neut % (Auto) 62.6 Lymph % (Auto) 26.1 [place] % (Auto) 8.8 Eos % (Auto) 1.2 L Baso % (Auto) 1.3 Neut # (Auto) 5100 Lymph # (Auto) 2100 [place] # (Auto) 700 Eos # (Auto) 100 Baso # (Auto) 100 RBC Morphology See below Dimorphic RBCs * Sodium 136 L Potassium 5.3 H Chloride 107 Carbon Dioxide 19 L BUN 32 H Creatinine 1.81 H Estimated GFR 29 L BUN/Creatinine Ratio 17.7 Glucose 86 Calcium 8.9 Total Bilirubin 1.3 AST 15 ALT 14 Alkaline Phosphatase 72 NT-Pro-B Natriuret Pep 39482 H Total Protein 7.0 Albumin 3.8 Globulin 3.2 Albumin/Globulin Ratio 1.2 [facility] Social History household members: spouse Smoking Status: Never smoker alcohol intake: current Assessment & Plan Assessment & Plan narrative: 1. Orthopnea, presumed Acute congestive heart failure. Present on admission. - NEGRITO developed with diuresis initially started. Given acute anemia unclear current volume status at this time. - Hold diuretics for now, pending echocardiogram and h/h trend. 2. Symptomatic anemia. Acute and present on admission. Improved h/h with transfusion will continue to follow - unclear baseline h/h, but severely microcytic. - see if iron profile can be sent from yesterday's labs prior to transfusion, otherwise defer further workup to outpatient. Consider electrophoresis. - with heme negative stools, depending on trend consider CT for less likely hematoma. Consider endoscopy though probably can defer to outpatient. 3. Acute on chronic renal failure. Present on admission. Follow labs and treated as needed. - unclear if due to congestion or anemia at this time, continue to follow 4. 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 Chronic and present on admission. Try to avoid nephrotoxic medication. 5. Type 2 diabetes. Chronic and present on admission. - hold metformin, change to SSI with diabetes medicaitons. 7. Hypertension. Chronic and present on admission. will hold lisinopril with NEGRITO and mildly elevated potassium. 8. Hyperlipidemia. Chronic and present on admission. Maintain patient's regular medication Admitted to inpatient. Probable discharge home in 1-2 days depending on TTE, lab findings. Code status: Full code. DVT prophylaxis: Contraindicated due to severe anemia, okay for SCD Surrogate decision maker: Patient's Glynn Patel. COVID-19 COVID-19 status: Not tested Time Spent With Patient Time with patient: 70 minutes or more, with 50% spent counseling/coordinating Quality VTE Deep Vein Thrombosis/Pulmonary Embolism Present on Admission: No
[2022-09-14 16:28] LABS: Hemoglobin 8.9 g/dL (12.0-16.0)
[2022-09-14 16:40] LABS: BUN Creatinine Ratio 19.1 (6-22); Blood Urea Nitrogen 31 mg/dL (7-17); Calcium 9.1 mg/dL (8.4-10.2); Carbon Dioxide 20 mmol/L (22-32); Chloride 106 mmol/L (98-107); Estimated Glomerular Filt Rate 33 mL/min (>60); Glucose 165 mg/dL (80-110); HEMOLYSIS < 15 (0-50); Potassium 5.2 mmol/L (3.4-5.1); Sodium 136 mmol/L (137-145)
[2022-09-14 17:35] LABS: HEMOLYSIS < 15 (0-50); Iron 13 ug/dL (37-170)
[2022-09-14 17:47] LABS: Percent Iron Saturation 3 % (15-50); Total Iron Binding Capacity 450 ug/dL (265-497); Transferrin 352 mg/dL (206-381)
[2022-09-14] MEDS: SODIUM CHLORIDE 0.9% FLUSH 10 ML IV ×2 (18:33→20:30)
[2022-09-14] MEDS: FUROSEMIDE 40 MG/4 ML VIAL IV (18:33)
--- NOTE | 2022-09-14 19:29 | DI.MRI.S_ITS ---
/PROCEDURE: MR HEAD/BRAIN WO CON INDICATIONS: new vision changes, r/o CVA TECHNIQUE: Non-contrast axial T1 spin echo, axial T2 fast spin echo, sagittal and axial FLAIR, coronal T2 fast spin echo, axial gradient echo, axial diffusion and ADC through the brain. COMPARISON: None. FINDINGS: Image quality: Excellent. CSF spaces: Ventricles appear symmetric in size and shape. There is mild cerebral volume loss with prominence of the ventricles and sulci. Basal cisterns are patent. No extra-axial fluid collections. Brain: No intracranial hemorrhage, mass, or mass effect. Diffusion-weighted images demonstrate no acute infarcts. [place]/white matter interface is normal. Brainstem appears normal. Normal intravascular flow voids are present. Skull and face: Calvarial bone marrow is normal in signal. Orbits appear within normal limits. Sinuses: Sinuses and mastoids are clear. IMPRESSION: 1. No infarct or other acute intracranial abnormality. Dictated by: Donnell Rodriguez M.D. on 09/14/2022 at 20:21 Approved by: Donnell Rodriguez M.D. on 09/14/2022 at 20:22
[2022-09-14 19:50] VITALS: BP 150/71; PULSE 87; RESP 18; TEMP 37.2; O2SAT 99
[2022-09-14] MEDS: AMLODIPINE 5 MG TABLET PO (20:27)
[2022-09-14] MEDS: SENNOSIDES 8.6 MG TABLET 17.2 MG PO (20:28)
[2022-09-14] MEDS: ATORVASTATIN 20 MG TABLET 40 MG PO (20:28)
[2022-09-14] MEDS: MELATONIN 3 MG TABLET PO (20:29)
[2022-09-15] VITALS (9 sets, daily range): BP systolic 123–141; BP diastolic 58–65; PULSE 66–79; RESP 16–18; TEMP 36.4–37.2; O2SAT 94–98
[2022-09-15 05:45] LABS: BUN Creatinine Ratio 20.7 (6-22); Blood Urea Nitrogen 35 mg/dL (7-17); Calcium 8.6 mg/dL (8.4-10.2); Carbon Dioxide 19 mmol/L (22-32); Chloride 106 mmol/L (98-107); Estimated Glomerular Filt Rate 31 mL/min (>60); Glucose 120 mg/dL (80-110); HEMOLYSIS < 15 (0-50); Magnesium 1.5 mg/dL (1.6-2.3); Sodium 134 mmol/L (137-145)
[2022-09-15 05:53] LABS: Basophils Absolute Auto 100 /uL (0-100); Basophils Percent Auto 1.3 % (0-2); Eosinophils Absolute Auto 200 /uL (0-450); Eosinophils Percent Auto 2.4 % (2-4); Hematocrit 26.6 % (36-46); Hemoglobin 8.3 g/dL (12.0-16.0); Lymphocytes Absolute Auto 1900 /uL (1100-4500); Lymphocytes Percent Auto 26.1 % (25-40); Mean Corpuscular HGB Conc 31.3 % (30-36); Mean Corpuscular Hemoglobin 20.2 PG (26-34); Mean Corpuscular Volume 64.6 fL (80-100); Monocytes Absolute Auto 800 /uL (0-900); Monocytes Percent Auto 10.6 % (3-14); Neutrophils Absolute Auto 4400 /uL (1500-7000); Neutrophils Percent Auto 59.6 % (50-75); Platelet Count 417 X10^3/uL (150-400); Red Blood Cell Count 4.11 X10^6/uL (4.0-5.2); Red Cell Distribution Width 26.4 % (11.6-14.8); White Blood Cell Count 7.3 X10^3/uL (4.5-11.0)
[2022-09-15 05:55] LABS: Add Manual Diff / Slide Review SLIDE REVIEW
[2022-09-15] MEDS: FUROSEMIDE 40 MG/4 ML VIAL IV ×2 (09:00→18:18)
[2022-09-15] MEDS: MAGNESIUM OXIDE 400 MG TABLET PO ×2 (09:19→20:53)
[2022-09-15] MEDS: SODIUM CHLORIDE 0.9% FLUSH 10 ML IV ×2 (09:20→20:59)
[2022-09-15] MEDS: lisinopriL 5 MG TABLET 2.5 MG PO (10:19)
[2022-09-15] MEDS: carvediloL 3.125 MG TABLET PO ×2 (10:20→20:54)
--- NOTE | 2022-09-15 11:53 | CM.DPC ---
DCP Continued: SCALPER OPERATOR reviewed EMR. Per provider in rounds, patient will likely be able to d/c home with family within the next few days. SCALPER OPERATOR entered room and reintroduced self and role. Patient was sitting up in bed and was pleasant and chatty. Patient was accompanied by spouse Glynn. Patient reports being hopeful to d/c tomorrow for her hair appointment. Patient reports she has many family supports at home and likely will not need additional resources from this CM team. Plan: patient will d/c home when medically stable. Likely no needs from this team. Transport with family in POV. CM team will continue to follow as needed. WILBERT Randall
[2022-09-15 14:13] LABS: Hematocrit 28.2 % (36-46); Hemoglobin 8.8 g/dL (12.0-16.0)
--- NOTE | 2022-09-15 14:22 | PM.PN.1 ---
Subjective Subjective Interval history: 77 F with PMH of chronic anemia, solitary kidney admitted with acute on chronic anemia and shortness of breath, found to have systolic heart failure with EF of 20-25%. Improving with diuresis today. H/h uptrended this afternoon. Creatinine improved slightly today but remains elevated. Exam Vital Signs (past 8 hours): - 09/15/22 09:00 09/15/22 10:19 09/15/22 10:20 Temperature 98.2 F Pulse Rate 69 69 69 Respiratory Rate 16 Blood Pressure 135/63 135/63 135/63 Pulse Oximetry 96 Oxygen Flow Rate 0 09/15/22 12:00 Temperature 98.1 F Pulse Rate 66 Respiratory Rate 16 Blood Pressure 123/62 Pulse Oximetry 98 Oxygen Flow Rate 0 Oxygen Delivery Method Room Air Oxygen Flow Rate 0 Narrative Exam Narrative: GENERAL: Appears stated age. Well-developed patient, in no acute medical distress at the time of my examination. HEAD: Atraumatic. Normocephalic. EYES: Pupils equal round and reactive. Extraocular motions intact. No scleral icterus. No injection or drainage. NECK: Trachea midline. Non tender CARDIOVASCULAR: Regular rate and rhythm without murmurs, gallops, or rubs. RESPIRATORY:? Adequate air entry throughout the lung león. Minimal crackles at the bases. GASTROINTESTINAL: Abdomen soft, non-tender, nondistended. EXTREMITIES:? trace edema bilateral lower extremities NEURO: AOx3. SKIN: No rash or erythema of visible areas Objective Labs 09/15/22 14:02 09/15/22 05:01 Labs: Laboratory Results - last 24 hr 09/13/22 09/14/22 09/14/22 09:50 16:20 16:20 WBC RBC Hgb 8.9 L Hct 28.0 L MCV MCH MCHC RDW Plt Count Neut % (Auto) Lymph % (Auto) [place] % (Auto) Eos % (Auto) Baso % (Auto) Neut # (Auto) Lymph # (Auto) [place] # (Auto) Eos # (Auto) Baso # (Auto) RBC Morphology Dimorphic RBCs Sodium 136 L Potassium 5.2 H Chloride 106 Carbon Dioxide 20 L BUN 31 H Creatinine 1.62 H Estimated GFR 33 L BUN/Creatinine Ratio 19.1 Glucose 165 H Calcium 9.1 Magnesium Iron 13 L TIBC 450 % Saturation 3 L Transferrin 352 09/15/22 09/15/22 09/15/22 05:01 05:01 14:02 WBC 7.3 RBC 4.11 Hgb 8.3 L 8.8 L Hct 26.6 L 28.2 L MCV 64.6 L MCH 20.2 L MCHC 31.3 RDW 26.4 H Plt Count 417 H Neut % (Auto) 59.6 Lymph % (Auto) 26.1 [place] % (Auto) 10.6 Eos % (Auto) 2.4 Baso % (Auto) 1.3 Neut # (Auto) 4400 Lymph # (Auto) 1900 [place] # (Auto) 800 Eos # (Auto) 200 Baso # (Auto) 100 RBC Morphology See below Dimorphic RBCs * Sodium 134 L Potassium 5.0 Chloride 106 Carbon Dioxide 19 L BUN 35 H Creatinine 1.69 H Estimated GFR 31 L BUN/Creatinine Ratio 20.7 Glucose 120 H Calcium 8.6 Magnesium 1.5 L Iron TIBC % Saturation Transferrin PFS Social History household members: spouse Smoking Status: Never smoker alcohol intake: current Assessment & Plan Assessment & Plan narrative: 1. Acute systolic heart failure Present on admission. - Echo with EF of 20-25%, unclear etiology. No current chest pain, predominant shortness of breath and orthopnea as symptoms. - have added low dose beta donnie and aceinhibition while continuing diuresis for volume overload. - NEGRITO improved today as discussed below. - recommend outpatient cardiology evaluation for further workup of systolic heart failure. - continue telemetry to monitor for arrythmia. 2. Symptomatic anemia. Acute and present on admission. Improved h/h with transfusion will continue to follow - unclear baseline h/h, but severely microcytic. - Iron profile consistent with iron deficiency, will start iron repletion. - with heme negative stools - h/h now stable. - outpatient EGD/colonoscopy recommended for iron deficiency evaluation given new diagnosis of systolic heart failure. 3. Acute on chronic renal failure. Present on admission. Follow labs and treated as needed. - unclear if due to congestion or anemia at this time or possibly a combination of both - has improved with continued diuresis and transfusion as well. 4. 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 Chronic and present on admission. Try to avoid nephrotoxic medication. 5. Type 2 diabetes. Chronic and present on admission. - hold metformin, change to SSI with diabetes medicaitons. 7. Hypertension. Chronic and present on admission. - have resumed lisinopril at a lower dose with normotension today given diuresis for heart failure management. 8. Hyperlipidemia. Chronic and present on admission. Maintain patient's regular medication 9. Hypomagnesemia - replete with oral today. Admitted to inpatient. Probable discharge home tomorrow depending on NEGRITO and dyspnea. Code status: Full code. DVT prophylaxis: Contraindicated due to severe anemia, okay for SCD Surrogate decision maker: Patient's Glynn Patel. COVID-19 COVID-19 status: Not tested Time Spent With Patient Time with patient: 70 minutes or more, with 50% spent counseling/coordinating Quality VTE Deep Vein Thrombosis/Pulmonary Embolism Present on Admission: No
[2022-09-15] MEDS: ATORVASTATIN 20 MG TABLET 40 MG PO (20:53)
[2022-09-15] MEDS: SENNOSIDES 8.6 MG TABLET 17.2 MG PO (20:53)
[2022-09-15] MEDS: MELATONIN 3 MG TABLET PO (21:41)
[2022-09-16 00:09] VITALS: BP 130/61; PULSE 74; RESP 16; TEMP 36.6; O2SAT 97
[2022-09-16 04:00] VITALS: BP 120/54; PULSE 70; RESP 20; TEMP 36.4; O2SAT 99
[2022-09-16 05:15] LABS: BUN Creatinine Ratio 25.9 (6-22); Blood Urea Nitrogen 48 mg/dL (7-17); Calcium 8.3 mg/dL (8.4-10.2); Carbon Dioxide 20 mmol/L (22-32); Chloride 104 mmol/L (98-107); Estimated Glomerular Filt Rate 28 mL/min (>60); Glucose 146 mg/dL (80-110); HEMOLYSIS < 15 (0-50); Magnesium 1.6 mg/dL (1.6-2.3); Potassium 5.3 mmol/L (3.4-5.1); Sodium 132 mmol/L (137-145)
--- NOTE | 2022-09-16 07:52 | DI.CT.S_ITS ---
PROCEDURE: CT ABDOMEN PELVIS WO CON INDICATIONS: NEGRITO, concern GI malignancy, oral contrast TECHNIQUE: After the administration of oral contrast, 5 mm thick sections acquired from the diaphragms to the symphysis. 5 mm coronal and sagittal reformats were performed. For radiation dose reduction, the following was used: automated exposure control, adjustment of mA and/or kV according to patient size. COMPARISON: [facility], CT, CT ANGIO CHEST PE PROTOCOL, 09/13/2022, 11:21. FINDINGS: ABDOMEN: Lung bases: Small-moderate bilateral pleural effusions. Solid organs: Liver is normal in size. Gallbladder is unremarkable . Pancreas is normal in size. Spleen is normal in size. No left adrenal nodule. Right adrenal gland not clearly visualized may be surgically absent. Prior right nephrectomy. Ill-defined and indeterminate soft tissue is present at the nephrectomy bed. A component of this likely represents the duodenum (for example sagittal series 5, image 33) however underlying scarring or recurrent disease is difficult to exclude. At the time of the exam, oral contrast is largely present within distal small bowel and colon. Evaluation is also difficult in the absence of intravenous contrast. No left hydronephrosis. Subcentimeter hyperattenuating foci present within the left kidney, difficult to characterize due to small size. Peritoneum and bowel: Small hiatal hernia likely present. No evidence of mechanical small bowel obstruction. Scattered colonic diverticula present without definite evidence of acute diverticulitis. No pneumoperitoneum or substantial peritoneal free fluid visualized. Nodes and vessels: No retroperitoneal or mesenteric adenopathy by size criteria. Aorta and inferior vena cava are normal in size. PELVIS: Genitourinary: Bladder wall thickness is normal. Miscellaneous: No adenopathy. Bones: Multilevel degenerative change of the visualized spine. IMPRESSION: 1. Prior right nephrectomy. Ill-defined and indeterminate soft tissue is present at the nephrectomy bed. A component of this likely represents the duodenum however underlying scarring or recurrent disease is difficult to exclude. Attention on follow-up exams is recommended, this exam can serve as a baseline for future follow-up studies. PET-CT might also be helpful for further evaluation. 2. Subcentimeter hyperattenuating foci present within the left kidney, difficult to characterize due to tiny size. These could represent hemorrhagic/proteinaceous cysts but a solid mass is difficult to fully exclude. Could consider surveillance imaging to assess for changes in size, for example in 3-6 months or other interval at clinical discretion. Renal protocol MRI or CT could be attempted but characterization may be difficult due to small size of the lesions. 3. Gastrointestinal neoplasm not excludable by CT. Consider evaluation with endoscopy/colonoscopy as clinically indicated. 4. Small-moderate bilateral pleural effusions. Dictated by: Sudheer Hi M.D. on 09/16/2022 at 11:13 Approved by: Sudheer Hi M.D. on 09/16/2022 at 11:31
[2022-09-16 08:00] VITALS: BP 136/55; PULSE 69; RESP 16; TEMP 36.8; O2SAT 97
[2022-09-16 09:28] VITALS: BP 136/55
[2022-09-16] MEDS: SODIUM CHLORIDE 0.9% FLUSH 10 ML IV (09:28)
[2022-09-16] MEDS: carvediloL 3.125 MG TABLET PO (09:28)
[2022-09-16] MEDS: FERROUS SULFATE 325 MG TABLET PO (09:28)
[2022-09-16] MEDS: FUROSEMIDE 40 MG TABLET PO (09:28)
[2022-09-16] MEDS: MAGNESIUM CHLORIDE 64 MG TABLET 128 MG PO (10:01)
--- NOTE | 2022-09-16 11:58 | PM.DS.1 ---
History of Present Illness History of Present Illness Date Patient Seen: 09/16/22 Time Patient Seen: 11:58 Chief complaint: breathing problems Narrative: Per admitting provider, Gillian Patel is a 77-year-old female nonsmoker with history of hypertension, one kidney removal, diabetes, hyperlipidemia presented with increasing shortness of breath with exertion over the past few days.? She stated minimal exertion makes her quite winded and she was having increasing trouble catching her breath and it was taking longer.? She stated that she can not lay flat because she becomes significantly short of breath and has swelling in both of her legs.? She denied any chest pain.? She is not dizzy, weak or lightheaded.? She denied nausea or vomiting and has had no trouble urinating.? She denied recent travel, history of known cancer or any recent injuries.? She has chronic anemia but has never?required transfusion. ?She denied any blood in her urine and has had no dark and tarry stools. Discharge Providers Provider Date of admission: 09/13/22 12:38 Discharge Date: 09/16/22 Primary care physician: Sandrine Nguyễn MD Discharge provider: Alcides Rivera DO Summary Hospital Course Discharge Diagnosis: Please see hospital course by problem list noted below. Hospital Course: 1. Acute systolic heart failure? Present on admission. with bilateral pleural effusions ?- Echo was performed with EF of 20-25%, unclear etiology given presentation. No current chest pain, predominant shortness of breath and orthopnea as symptoms which improved with diuresis. ?- added low dose carvedilol, blood pressures remained soft. Worsened potassium with even low dose resumption of lisinopril (only 5.1) but held given soft blood pressures with diuretic and worsened creatinine. If her labs improve, do recommend re-initiation of araceli inhibition in the setting of heart failure. Could also consider entresto though patient is concerned about cost. ?- NEGRITO did improve but was between 1.6 to 1.8 during her stay. Unclear if this is truly acute or progression of CKD. Further monitoring with primary care, and specialists are recommended as noted elsewhere. Patient was counseled on continued admission to monitor renal function vs desired discharge home, and patient elected for discharge home. I feel this is safe at this time given stable renal function with improved clinical symptoms at this time. Though she does need quick follow up with primary care which was stressed to the patient. ?- recommend outpatient cardiology evaluation for further evaluation of systolic heart failure. ?- telemetry monitoring reveled no tachyarrythmias. Patient does endorse intermittent palpitations, consider outpatient holter monitoring. - effusions have appeared to decrease in size after repeat CT imaging today with diuresis. - discharged home furosemide 40 mg daily, low dose carvedilol 3.125 mg BID. Lisinopril held as noted above given renal function and potassium level and patient's desire to discharge home. 2. Symptomatic anemia.? Acute and present on admission with history of chronic anemia. ?- unclear baseline h/h, but severely microcytic. ?- Iron profile consistent with iron deficiency, started with iron repletion. Okay to continue every other day as patient was concerned about constipation. ?- heme negative stools on guaiac testing during admission ?- h/h ultimately stabilized in the mid 8s. - Patient's reported dark stools ongoing. CT scan was ordered (primarily to rule out obstruction given NEGRITO, but to evaluate for possible obvious malignancy) which did show nonspecific findings but no overt or obvious malignancy. Repeat imaging is recommended (please see imaging report) in a couple of months. Patient was counseled on need for EGD and colonoscopy given iron deficiency anemia, which she refused at this time or in the future. Recommend readdressing this with primary care in the hopes she will be agreeable in the future. - no overt evidence of active bleeding was found during admission. 3. Acute on chronic renal failure.? Present on admission.? Follow labs and treated as needed. ?- unclear if due to congestion or anemia at this time or possibly a combination of both. This may also be due to progression of CKD. ?- initially improved with continued diuresis and transfusion as well but then bumped slightly on the day of discharge. This may have been due to reintroduction of lisinopril, overdiuresis with furosemide, or may represent progression of CKD. - Patient was counseled on continued admission for further monitoring, but she elected for discharge home as discussed above. - given elevated creatinine and complexity of her other medical problems, do recommend outpatient nephrology. 4. Lone kidney secondary to previous nephrectomy.? Chronic and present on admission.? Try to avoid nephrotoxic medication. - recommend referral to nephrology as an outpatient given iron deficiency anemia, solitary kidney with CKD. 5. Type 2 diabetes.? Chronic and present on admission. ?- held metformin during admission, changed to SSI though patient refused insulin during her stay. - okay to resume oral medications on discharge. - counseled on possible Jardiance given heart failure if renal function improves, she was not interested at this time given cost concerns. 7. Hypertension.? Chronic and present on admission. ?- please see above for discharge medications. 8. Hyperlipidemia.? Chronic and present on admission.? Maintained patient's regular medication of atorvastatin 20 mg. 9. Hypomagnesemia ?- repleted with oral magnesium x1 with improvement. 10. borderline hyperkalemia - see discussion above, likely related to renal disease, lisinopril held. 11. Vision changes - patient reported color changes acutely during her hospitalization. She had no other neurological symptoms but given palpitation reports and her new EF of 20-25% there was concern for CVA. NIH was 0. MRI was ultimately negative and color changes resolved. Etiology is not known at this time. Time Spent with Patient Time spent: Greater than 30 minutes Exam Vital Signs (past 8 hours): - 09/16/22 04:00 09/16/22 08:00 09/16/22 09:28 Temperature 97.5 F L 98.2 F Pulse Rate 70 69 Respiratory Rate 20 16 Blood Pressure 120/54 L 136/55 L 136/55 L Pulse Oximetry 99 97 Oxygen Flow Rate 0 0 Oxygen Delivery Method Room Air Oxygen Flow Rate 0 Narrative Exam Narrative: GENERAL: Appears stated age. Well-developed patient, in no acute medical distress at the time of my examination. HEAD: Atraumatic. Normocephalic. EYES: Pupils equal round and reactive. Extraocular motions intact. No scleral icterus. No injection or drainage. NECK: Trachea midline. Non tender CARDIOVASCULAR: Regular rate and rhythm without murmurs, gallops, or rubs. RESPIRATORY:? Adequate air entry throughout the lung león. Minimal crackles at the bases. GASTROINTESTINAL: Abdomen soft, non-tender, nondistended. EXTREMITIES:? trace edema bilateral lower extremities NEURO: AOx3. SKIN: No rash or erythema of visible areas Objective Labs 09/15/22 14:02 09/16/22 04:38 Labs: Laboratory Results - last 24 hr 09/15/22 09/16/22 14:02 04:38 Hgb 8.8 L Hct 28.2 L Sodium 132 L Potassium 5.3 H Chloride 104 Carbon Dioxide 20 L BUN 48 H Creatinine 1.85 H Estimated GFR 28 L BUN/Creatinine Ratio 25.9 H Glucose 146 H Calcium 8.3 L Magnesium 1.6 PFSH Social History household members: spouse Smoking Status: Never smoker alcohol intake: current Discharge Plan Discharge Plan Patient Disposition: Home Provider Discharge Comment: You were admitted to the hospital with anemia, found to have new diagnosis of heart failure. Your kidney function was a bit worse than before as well, likely due to a multitude of issues, you wished to discharge home today. Your blood pressure medications are being changed and will need to continue to be adjusted with your primary care provider over the coming weeks. Please follow up with your primary clinic next week if possible with lab testing recommended for next week as well. I recommend referral to a signals intelligence superintendent and further evaluation of your iron deficiency with EGD and colonoscopy. Please work on cutting down from diet soda. Discharge orders & Medications Prescriptions: New carvedilol [Coreg] 3.125 mg Tablet 3.125 mg PO BID 30 Days Qty: 60 0RF ferrous sulfate 325 mg (65 mg iron) Tablet 325 mg PO Q OTHER DAY 60 Days Qty: 30 0RF furosemide 40 mg Tablet 40 mg PO DAILY 30 Days Qty: 30 0RF Continued atorvastatin 40 mg tablet 20 mg PO DAILY metformin 1,000 mg tablet 1,000 mg PO BID glipizide 5 mg Tablet 20 mg PO DAILY Discontinued amlodipine 5 mg tablet 5 mg PO DAILY lisinopril 40 mg tablet 40 mg PO DAILY Follow up/Referrals: Sandrine Nguyễn MD [Primary Care Provider] - 1 Week (New dx systolic heart failure) Diet/Activity/Treatments Diet: Diet as Tolerated and Low-sodium Activity: As tolerated with no restrictions. Visit Report/Discharge Packet Instructions: DI for Heart Failure Stand Alone Forms: Patient Portal/API, Stroke Signs & Symptoms Discharge Data Primary Care Provider: Sandrine Nguyễn Discharges patient from system. Discharge Date/Time: 09/16/22 12:49 Quality VTE Deep Vein Thrombosis/Pulmonary Embolism Present on Admission: No
[2022-09-16 12:00] VITALS: BP 130/48; PULSE 66; RESP 16; TEMP 36.8; O2SAT 96
--- NOTE | 2022-09-16 12:47 | PC.NURSE ---
Day shift: Discharge instructions gone over with patient and patient's spouse. All questions answered, pt stated understanding. Both PIVs and telemetry d/c'ed prior to discharge. EDIE Lynn escorted pt via wheelchair to ER exit where patient's spouse picked her up.
--- NOTE | 2022-09-16 14:09 | CM.DPC ---
DCP Continued: Per provider in rounds, d/c home today with family. No needs from CM team. Patient left prior to being seen by CM team. Plan: patient to d/c home today with supportive family. No needs at this time. WILBERT Randall
== END 2022-09-16 12:49 | disposition home or self-care (01) | DRG 291 ==
LOC: ED 12:14 → AC 12:39
PROVIDERS: Internal Medicine; Admitting Provider Neuromusculoskeletal Medicine, Sports Medicine; Emergency Provider Emergency Medicine; PCP Internal Medicine; Referring Provider Emergency Medicine; Visit Provider Neuromusculoskeletal Medicine, Sports Medicine
DX: I13.0 Hypertensive heart and chronic kidney disease with heart failure and stage 1 through stage 4 chronic kidney disease, or unspecified chronic kidney disease (principal); I50.21 Acute systolic (congestive) heart failure; N18.9 Chronic kidney disease, unspecified; E78.5 Hyperlipidemia, unspecified; E83.42 Hypomagnesemia; H53.8 Other visual disturbances; E11.22 Type 2 diabetes mellitus with diabetic chronic kidney disease; D63.1 Anemia in chronic kidney disease; Z90.5 Acquired absence of kidney; Z79.84 Long term (current) use of oral hypoglycemic drugs
CPT/HCPCS: 36415; 36430; 70551; 71045; 71275; 74176; 80048; 80053; 82962; 83540; 83550; 83605; 83735; 83880; 84484; 85014; 85018; 85025; 85379; 85610; 86850; 86900; 86901; 93005; 93010; 93306; 96374; 99285; P9016; J1940; Q9967

== ENCOUNTER → 2022-10-05 09:35 | Outpatient (CLI) | payer MEDICARE, OTHER, SELFPAY ==
[2022-09-13 12:40] VITALS: BMI 31.1
[2022-10-05 12:18] LABS: BUN Creatinine Ratio 40.6 (6-22); Blood Urea Nitrogen 88 mg/dL (7-17); Calcium 9.1 mg/dL (8.4-10.2); Carbon Dioxide 22 mmol/L (22-32); Chloride 103 mmol/L (98-107); Cholesterol 154 mg/dL (140-199); Estimated Glomerular Filt Rate 23 mL/min (>60); Glucose 149 mg/dL (80-110); HDL Cholesterol 43 mg/dL (40-60); HEMOLYSIS < 15 (0-50); LDL Cholesterol Calculated 88 mg/dL (<100); Sodium 134 mmol/L (137-145); Triglycerides 115 mg/dL (35-150)
[2022-10-05 12:33] LABS: Potassium 6.2 mmol/L (3.4-5.1)
== END ==
PROVIDERS: PCP Internal Medicine; Referring Provider Internal Medicine Cardiovascular Disease; Visit Provider Internal Medicine Cardiovascular Disease
DX: E78.5 Hyperlipidemia, unspecified (principal); I50.22 Chronic systolic (congestive) heart failure
CPT/HCPCS: 36415; 80048; 80061

== ENCOUNTER 2022-10-06 13:11 | Emergency (ER) | payer MEDICARE, OTHER, SELFPAY ==
[2022-09-13 12:40] VITALS: BMI 31.1
[2022-10-06] VITALS (17 sets, daily range): BP systolic 114–155; BP diastolic 56–82; PULSE 54–68; RESP 14–21; TEMP 36.6–36.7; O2SAT 99–100; BMI 28.5
[2022-10-06 13:53] LABS: Basophils Absolute Auto 100 /uL (0-100); Basophils Percent Auto 1.5 % (0-2); Eosinophils Absolute Auto 200 /uL (0-450); Hematocrit 27.9 % (36-46); Hemoglobin 8.8 g/dL (12.0-16.0); Lymphocytes Absolute Auto 700 /uL (1100-4500); Lymphocytes Percent Auto 12.3 % (25-40); Mean Corpuscular HGB Conc 31.7 % (30-36); Mean Corpuscular Volume 69.5 fL (80-100); Monocytes Absolute Auto 400 /uL (0-900); Monocytes Percent Auto 6.9 % (3-14); Neutrophils Absolute Auto 4400 /uL (1500-7000); Neutrophils Percent Auto 75.3 % (50-75); Platelet Count 309 X10^3/uL (150-400); Red Blood Cell Count 4.01 X10^6/uL (4.0-5.2); Red Cell Distribution Width 30.2 % (11.6-14.8); White Blood Cell Count 5.9 X10^3/uL (4.5-11.0)
[2022-10-06 14:00] LABS: Alanine Aminotransferase 12 IU/L (<35); Albumin Globulin Ratio 1.3 (1.0-2.8); Alkaline Phosphatase 63 U/L (38-126); Aspartate Aminotransferase 17 IU/L (14-36); BUN Creatinine Ratio 44.1 (6-22); Bilirubin Total 0.4 mg/dL (0.2-1.3); Blood Urea Nitrogen 93 mg/dL (7-17); Calcium 8.8 mg/dL (8.4-10.2); Carbon Dioxide 23 mmol/L (22-32); Chloride 100 mmol/L (98-107); Estimated Glomerular Filt Rate 24 mL/min (>60); Glucose 370 mg/dL (80-110); HEMOLYSIS < 15 (0-50); Magnesium 2.2 mg/dL (1.6-2.3); Sodium 132 mmol/L (137-145)
[2022-10-06 14:03] LABS: Add Manual Diff / Slide Review SLIDE REVIEW
[2022-10-06 14:05] LABS: Anisocytosis 2+
[2022-10-06 14:06] LABS: Microcytosis 1+; Ovalocytes 1+
--- NOTE | 2022-10-06 14:06 | ED_ITS ---
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 She had outpatient labs ordered as a routine follow-up as she just started Entresto about 1 week ago was found to have a potassium over 6. She was sent here for evaluation and treatment. She denies any symptoms whatsoever specifically stating she has no dizziness, weakness or lightheadedness. She denies chest pain, shortness of breath or palpitations. She has no nausea, vomiting or diarrhea. Related Data Home Medications Medication Instructions Recorded Confirmed atorvastatin 40 mg tablet 20 mg PO DAILY 09/13/22 09/13/22 glipizide 5 mg tablet 20 mg PO DAILY 09/13/22 09/13/22 metformin 1,000 mg tablet 1,000 mg PO BID 09/13/22 09/13/22 Previous Rx's Medication Instructions Recorded carvedilol 3.125 mg tablet (Coreg) 3.125 mg PO BID 30 days #60 tabs 09/16/22 ferrous sulfate 325 mg (65 mg 325 mg PO Q OTHER DAY 60 days #30 09/16/22 iron) tablet tabs furosemide 40 mg tablet 40 mg PO DAILY 30 days #30 tabs 09/16/22 Allergies Allergy/AdvReac Type Severity Reaction Status Date / Time No Known Drug Allergies Allergy Verified 09/13/22 09:53 Review of Systems <Ian Evans DO - Last Filed: 10/08/22 15:45> Review of Systems Narrative: GENERAL: Denies chills, fatigue, malaise, fever, sweats. HEENT: Denies sinus pain, ear pain, sore throat, difficulty swallowing, dizziness. RESPIRATORY: Denies dyspnea, cough, wheezing, hemoptysis, sputum. CARDIOVASCULAR: Denies chest pain, palpitations, orthopnea, edema, GASTROINTESTINAL: Denies nausea, vomiting, abdominal pain, diarrhea, constipation, melena. : Denies dysuria, frequency, incontinence, hematuria, urinary retention. MUSCULOSKELETAL: denies weakness, joint pain, or bony pain SKIN: Denies rash, skin lesions, or other NEUROLOGIC: Denies weakness, headache, numbness, change in speech, confusion, seizures, incoordination. PSYCHIATRIC: No concerning psychosocial issues. 12 point review of systems is negative except for those stated above Patient History <Ian Evans DO - Last Filed: 10/08/22 15:45> Social History household members: spouse Smoking Status: Never smoker alcohol intake: current Smoking Status: Never smoker alcohol intake frequency: holidays/special occasions only Substance Use Type: does not use Exam <Ian Evans DO - Last Filed: 10/08/22 15:45> Narrative Exam Narrative: GENERAL: [77] year old patient appears stated age. Well-developed patient, in mild distress. HEAD: Atraumatic. Normocephalic. EYES: Pupils equal round and reactive. Extraocular motions intact. No scleral icterus. No injection or drainage. ENT: Nose without bleeding, purulent drainage. Throat without erythema, tonsillar hypertrophy or exudate. Airway patent. NECK: Trachea midline. Non tender CARDIOVASCULAR: Regular rate and rhythm without murmurs, gallops, or rubs. RESPIRATORY: Clear to auscultation. Breath sounds equal bilaterally. No wheezes, rales, or rhonchi. GASTROINTESTINAL: Abdomen soft, non-tender, nondistended. EXTREMITIES: No edema or joint tenderness. BACK: Nontender without deformity or crepitance. No flank tenderness. NEURO: AOx3. SKIN: No rash or erythema of visible areas Initial Vital Signs Initial Vital Signs: Vital Signs Temperature 98.1 F 10/06/22 13:17 Pulse Rate 68 10/06/22 13:17 Respiratory Rate 18 10/06/22 13:17 Blood Pressure 142/63 H 10/06/22 13:17 Pulse Oximetry 100 10/06/22 13:17 Oxygen Delivery Method Room Air 10/06/22 13:17 <Delvin Munoz DO - Last Filed: 10/06/22 19:51> Initial Vital Signs Initial Vital Signs: Vital Signs Temperature 98.1 F 10/06/22 13:17 Pulse Rate 68 10/06/22 13:17 Respiratory Rate 18 10/06/22 13:17 Blood Pressure 142/63 H 10/06/22 13:17 Pulse Oximetry 100 10/06/22 13:17 Oxygen Delivery Method Room Air 10/06/22 13:17 Course <Ian Evans, - Last Filed: 10/08/22 15:45> Orders Ordered: Discontinued Medications Albuterol (Albuterol 2.5 Mg/3 Ml Neb (Adult)) 20 mg INH NOW ONE Stop: 10/06/22 14:07 Last Admin: 10/06/22 15:00 Dose: 20 mg Documented By: CHRISSY Dextrose (D10w) 250 mls @ 999 mls/hr IV PRN PRN PRN Reason: Hypoglycemia Last Infusion: 10/06/22 17:28 Dose: 0 mls/hr Documented By: Admin: 10/06/22 17:12 Dose: 999 mls/hr Documented By: MEREDITH Insulin Human Regular (Insulin Regular 100 Unit/Ml 3 Ml Vial) 5 unit IV NOW ONE Stop: 10/06/22 16:42 Last Admin: 10/06/22 17:06 Dose: 5 unit Documented By: MEREDITH Co-signed By: KARIME Vital Signs Vital signs: Vital Signs - 8 hr 10/06/22 13:17 10/06/22 14:17 10/06/22 14:30 Temperature 98.1 F Pulse Rate 68 60 Respiratory Rate 18 19 Blood Pressure 142/63 H 126/57 L Pulse Oximetry 100 100 Oxygen Delivery Method Room Air 10/06/22 14:30 10/06/22 15:00 10/06/22 15:01 Temperature Pulse Rate 56 L 54 L 55 L Respiratory Rate 19 19 15 Blood Pressure Pulse Oximetry 100 100 100 Oxygen Delivery Method 10/06/22 15:01 10/06/22 15:30 10/06/22 15:31 Temperature Pulse Rate 57 L Respiratory Rate 14 Blood Pressure 145/61 H 118/58 L Pulse Oximetry 100 Oxygen Delivery Method 10/06/22 15:31 10/06/22 16:00 10/06/22 16:00 Temperature Pulse Rate 57 L 55 L Respiratory Rate 16 16 Blood Pressure 121/58 L Pulse Oximetry 100 100 Oxygen Delivery Method 10/06/22 16:30 10/06/22 16:30 10/06/22 17:00 Temperature Pulse Rate 60 66 Respiratory Rate 20 18 Blood Pressure 119/58 L Pulse Oximetry 99 100 Oxygen Delivery Method 10/06/22 17:01 10/06/22 17:01 10/06/22 17:30 Temperature Pulse Rate 66 60 Respiratory Rate 20 18 Blood Pressure 155/82 H Pulse Oximetry 99 100 Oxygen Delivery Method 10/06/22 17:31 10/06/22 17:31 10/06/22 18:00 Temperature Pulse Rate 62 57 L Respiratory Rate 14 16 Blood Pressure 127/60 Pulse Oximetry 100 99 Oxygen Delivery Method 10/06/22 18:01 10/06/22 18:01 10/06/22 18:30 Temperature Pulse Rate 56 L Respiratory Rate 15 Blood Pressure 114/56 L 131/60 Pulse Oximetry 100 Oxygen Delivery Method 10/06/22 18:30 10/06/22 19:00 10/06/22 19:00 Temperature 97.9 F Pulse Rate 61 57 L Respiratory Rate 21 15 Blood Pressure 131/60 Pulse Oximetry 99 100 Oxygen Delivery Method <Delvin Munoz, - Last Filed: 10/06/22 19:51> Orders Ordered: Discontinued Medications Albuterol (Albuterol 2.5 Mg/3 Ml Neb (Adult)) 20 mg INH NOW ONE Stop: 10/06/22 14:07 Last Admin: 10/06/22 15:00 Dose: 20 mg Documented By: CHRISSY Dextrose (D10w) 250 mls @ 999 mls/hr IV PRN PRN PRN Reason: Hypoglycemia Last Infusion: 10/06/22 17:28 Dose: 0 mls/hr Documented By: Admin: 10/06/22 17:12 Dose: 999 mls/hr Documented By: MEREDITH Insulin Human Regular (Insulin Regular 100 Unit/Ml 3 Ml Vial) 5 unit IV NOW ONE Stop: 10/06/22 16:42 Last Admin: 10/06/22 17:06 Dose: 5 unit Documented By: MEREDITH Co-signed By: KARIME Vital Signs Vital signs: Vital Signs - 8 hr 10/06/22 13:17 10/06/22 14:17 10/06/22 14:30 Temperature 98.1 F Pulse Rate 68 60 Respiratory Rate 18 19 Blood Pressure 142/63 H 126/57 L Pulse Oximetry 100 100 Oxygen Delivery Method Room Air 10/06/22 14:30 10/06/22 15:00 10/06/22 15:01 Temperature Pulse Rate 56 L 54 L 55 L Respiratory Rate 19 19 15 Blood Pressure Pulse Oximetry 100 100 100 Oxygen Delivery Method 10/06/22 15:01 10/06/22 15:30 10/06/22 15:31 Temperature Pulse Rate 57 L Respiratory Rate 14 Blood Pressure 145/61 H 118/58 L Pulse Oximetry 100 Oxygen Delivery Method 10/06/22 15:31 10/06/22 16:00 10/06/22 16:00 Temperature Pulse Rate 57 L 55 L Respiratory Rate 16 16 Blood Pressure 121/58 L Pulse Oximetry 100 100 Oxygen Delivery Method 10/06/22 16:30 10/06/22 16:30 10/06/22 17:00 Temperature Pulse Rate 60 66 Respiratory Rate 20 18 Blood Pressure 119/58 L Pulse Oximetry 99 100 Oxygen Delivery Method 10/06/22 17:01 10/06/22 17:01 10/06/22 17:30 Temperature Pulse Rate 66 60 Respiratory Rate 20 18 Blood Pressure 155/82 H Pulse Oximetry 99 100 Oxygen Delivery Method 10/06/22 17:31 10/06/22 17:31 10/06/22 18:00 Temperature Pulse Rate 62 57 L Respiratory Rate 14 16 Blood Pressure 127/60 Pulse Oximetry 100 99 Oxygen Delivery Method 10/06/22 18:01 10/06/22 18:01 10/06/22 18:30 Temperature Pulse Rate 56 L Respiratory Rate 15 Blood Pressure 114/56 L 131/60 Pulse Oximetry 100 Oxygen Delivery Method 10/06/22 18:30 10/06/22 19:00 10/06/22 19:00 Temperature 97.9 F Pulse Rate 61 57 L Respiratory Rate 21 15 Blood Pressure 131/60 Pulse Oximetry 99 100 Oxygen Delivery Method MDM - Recheck/Abnormal Lab/Rx <Ian Evans, DO - Last Filed: 10/08/22 15:45> Lab Data 10/06/22 13:10 10/06/22 18:58 Labs: Lab Results 10/06/22 10/06/22 10/06/22 Range/Units 13:10 13:10 16:15 WBC 5.9 (4.5-11.0) X10^3/uL RBC 4.01 (4.0-5.2) X10^6/uL Hgb 8.8 L (12.0-16.0) g/dL Hct 27.9 L (36-46) % MCV 69.5 L (80-100) fL MCH 22.0 L (26-34) PG MCHC 31.7 (30-36) % RDW 30.2 H (11.6-14.8) % Plt Count 309 (150-400) X10^3/uL Neut % (Auto) 75.3 H (50-75) % Lymph % (Auto) 12.3 L (25-40) % [place] % (Auto) 6.9 (3-14) % Eos % (Auto) 4.0 (2-4) % Baso % (Auto) 1.5 (0-2) % Neut # (Auto) 4400 (6718-6723) /uL Lymph # (Auto) 700 L (1496-3730) /uL [place] # (Auto) 400 (0-900) /uL Eos # (Auto) 200 (0-450) /uL Baso # (Auto) 100 (0-100) /uL RBC Morphology See below Anisocytosis 2+ H Microcytosis 1+ H Ovalocytes 1+ H Acanthocytes (Spur) 1+ H Sodium 132 L 133 L (137-145) mmol/L Potassium 6.4 H* 6.7 H* (3.4-5.1) mmol/L Chloride 100 104 (98-107) mmol/L Carbon Dioxide 23 22 (22-32) mmol/L BUN 93 H 98 H (7-17) mg/dL Creatinine 2.11 H 1.96 H (0.52-1.04) mg/dL Estimated GFR 24 L 26 L (>60) mL/min BUN/Creatinine Ratio 44.1 H 50.0 H (6-22) Glucose 370 H D 223 H D (80-110) mg/dL Calcium 8.8 8.6 (8.4-10.2) mg/dL Magnesium 2.2 (1.6-2.3) mg/dL Total Bilirubin 0.4 (0.2-1.3) mg/dL AST 17 (14-36) IU/L ALT 12 (<35) IU/L Alkaline Phosphatase 63 (38-126) U/L Total Protein 7.0 (6.3-8.2) g/dL Albumin 4.0 (3.5-5.0) g/dL Globulin 3.0 (1.7-4.1) g/dL Albumin/Globulin Ratio 1.3 (1.0-2.8) 10/06/ Range/Units 18:58 WBC (4.5-11.0) X10^3/uL RBC (4.0-5.2) X10^6/uL Hgb (12.0-16.0) g/dL Hct (36-46) % MCV (80-100) fL MCH (26-34) PG MCHC (30-36) % RDW (11.6-14.8) % Plt Count (150-400) X10^3/uL Neut % (Auto) (50-75) % Lymph % (Auto) (25-40) % [place] % (Auto) (3-14) % Eos % (Auto) (2-4) % Baso % (Auto) (0-2) % Neut # (Auto) (3534-1291) /uL Lymph # (Auto) (7206-7585) /uL [place] # (Auto) (0-900) /uL Eos # (Auto) (0-450) /uL Baso # (Auto) (0-100) /uL RBC Morphology Anisocytosis Microcytosis Ovalocytes Acanthocytes (Spur) Sodium 135 L (137-145) mmol/L Potassium 5.7 H (3.4-5.1) mmol/L Chloride 103 (98-107) mmol/L Carbon Dioxide 22 (22-32) mmol/L BUN 98 H (7-17) mg/dL Creatinine 1.97 H (0.52-1.04) mg/dL Estimated GFR 26 L (>60) mL/min BUN/Creatinine Ratio 49.7 H (6-22) Glucose 118 H D (80-110) mg/dL Calcium 8.7 (8.4-10.2) mg/dL Magnesium (1.6-2.3) mg/dL Total Bilirubin (0.2-1.3) mg/dL AST (14-36) IU/L ALT (<35) IU/L Alkaline Phosphatase (38-126) U/L Total Protein (6.3-8.2) g/dL Albumin (3.5-5.0) g/dL Globulin (1.7-4.1) g/dL Albumin/Globulin Ratio (1.0-2.8) Urine Dip Bedside Urine Glucose 100 mg/dl Bedside Urine Bilirubin - Negative Bedside Urine Ketone - Negative Urine Specific [place] 1.010 Bedside Urine Occult Blood - Negative Bedside Urine pH 6.0 Bedside Urine Protein - Negative Bedside Urine Urobilinogen - Negative Bedside Urine Nitrite - Negative Bedside Urine Leukocytes - Negative Esterase MDM Narrative Medical decision making narrative: CC: 77-year-old female with asymptomatic hyperkalemia Complicating co-morbidities: Hypertension, hyperlipidemia, diabetes Data collected from: Patient Medical records reviewed: Prior notes reviewed in our EMR Exam documented above, pertinent findings include: Heart rate regular, lungs clear to auscultation bilaterally, abdomen soft Lab Test results independently reviewed as above. Pertinent findings: No leukocytosis or left shift, patient at baseline H&H of 8.8 and 20, initial potassium 6.4, after above-stated therapies she increases to 6.7 Independently reviewed EKG as above Imaging studies independently reviewed: Scores Used: MIPS Elements: Consultations: Treatments: Re-evaluations: Discussion: Disposition: see below, along with detailed discharge instructions that have been reviewed with patient as well as indications for ED re-evaluation and additional outpatient follow up <Delvin Munoz, DO - Last Filed: 10/06/22 19:51> Lab Data Labs: Lab Results 10/06/22 10/06/22 10/06/22 Range/Units 13:10 13:10 16:15 WBC 5.9 (4.5-11.0) X10^3/uL RBC 4.01 (4.0-5.2) X10^6/uL Hgb 8.8 L (12.0-16.0) g/dL Hct 27.9 L (36-46) % MCV 69.5 L (80-100) fL MCH 22.0 L (26-34) PG MCHC 31.7 (30-36) % RDW 30.2 H (11.6-14.8) % Plt Count 309 (150-400) X10^3/uL Neut % (Auto) 75.3 H (50-75) % Lymph % (Auto) 12.3 L (25-40) % [place] % (Auto) 6.9 (3-14) % Eos % (Auto) 4.0 (2-4) % Baso % (Auto) 1.5 (0-2) % Neut # (Auto) 4400 (0537-8916) /uL Lymph # (Auto) 700 L (4465-1283) /uL [place] # (Auto) 400 (0-900) /uL Eos # (Auto) 200 (0-450) /uL Baso # (Auto) 100 (0-100) /uL RBC Morphology See below Anisocytosis 2+ H Microcytosis 1+ H Ovalocytes 1+ H Acanthocytes (Spur) 1+ H Sodium 132 L 133 L (137-145) mmol/L Potassium 6.4 H* 6.7 H* (3.4-5.1) mmol/L Chloride 100 104 (98-107) mmol/L Carbon Dioxide 23 22 (22-32) mmol/L BUN 93 H 98 H (7-17) mg/dL Creatinine 2.11 H 1.96 H (0.52-1.04) mg/dL Estimated GFR 24 L 26 L (>60) mL/min BUN/Creatinine Ratio 44.1 H 50.0 H (6-22) Glucose 370 H D 223 H D (80-110) mg/dL Calcium 8.8 8.6 (8.4-10.2) mg/dL Magnesium 2.2 (1.6-2.3) mg/dL Total Bilirubin 0.4 (0.2-1.3) mg/dL AST 17 (14-36) IU/L ALT 12 (<35) IU/L Alkaline Phosphatase 63 (38-126) U/L Total Protein 7.0 (6.3-8.2) g/dL Albumin 4.0 (3.5-5.0) g/dL Globulin 3.0 (1.7-4.1) g/dL Albumin/Globulin Ratio 1.3 (1.0-2.8) 10/06/22 Range/Units 18:58 WBC (4.5-11.0) X10^3/uL RBC (4.0-5.2) X10^6/uL Hgb (12.0-16.0) g/dL Hct (36-46) % MCV (80-100) fL MCH (26-34) PG MCHC (30-36) % RDW (11.6-14.8) % Plt Count (150-400) X10^3/uL Neut % (Auto) (50-75) % Lymph % (Auto) (25-40) % [place] % (Auto) (3-14) % Eos % (Auto) (2-4) % Baso % (Auto) (0-2) % Neut # (Auto) (0838-0826) /uL Lymph # (Auto) (5820-3049) /uL [place] # (Auto) (0-900) /uL Eos # (Auto) (0-450) /uL Baso # (Auto) (0-100) /uL RBC Morphology Anisocytosis Microcytosis Ovalocytes Acanthocytes (Spur) Sodium 135 L (137-145) mmol/L Potassium 5.7 H (3.4-5.1) mmol/L Chloride 103 (98-107) mmol/L Carbon Dioxide 22 (22-32) mmol/L BUN 98 H (7-17) mg/dL Creatinine 1.97 H (0.52-1.04) mg/dL Estimated GFR 26 L (>60) mL/min BUN/Creatinine Ratio 49.7 H (6-22) Glucose 118 H D (80-110) mg/dL Calcium 8.7 (8.4-10.2) mg/dL Magnesium (1.6-2.3) mg/dL Total Bilirubin (0.2-1.3) mg/dL AST (14-36) IU/L ALT (<35) IU/L Alkaline Phosphatase (38-126) U/L Total Protein (6.3-8.2) g/dL Albumin (3.5-5.0) g/dL Globulin (1.7-4.1) g/dL Albumin/Globulin Ratio (1.0-2.8) Urine Dip Bedside Urine Glucose 100 mg/dl Bedside Urine Bilirubin - Negative Bedside Urine Ketone - Negative Urine Specific [place] 1.010 Bedside Urine Occult Blood - Negative Bedside Urine pH 6.0 Bedside Urine Protein - Negative Bedside Urine Urobilinogen - Negative Bedside Urine Nitrite - Negative Bedside Urine Leukocytes - Negative Esterase MDM Narrative Medical decision making narrative: CC: 77-year-old female with asymptomatic hyperkalemia Complicating co-morbidities: Hypertension, hyperlipidemia, diabetes Data collected from: Patient Medical records reviewed: Prior notes reviewed in our EMR Exam documented above, pertinent findings include: Heart rate regular, lungs clear to auscultation bilaterally, abdomen soft Lab Test results independently reviewed as above. Pertinent findings: No leukocytosis or left shift, patient at baseline H&H of 8.8 and 20, initial potassium 6.4, after above-stated therapies she increases to 6.7 Independently reviewed EKG as above Imaging studies independently reviewed: Scores Used: MIPS Elements: Consultations: Treatments: Re-evaluations: Discussion: Disposition: see below, along with detailed discharge instructions that have been reviewed with patient as well as indications for ED re-evaluation and additional outpatient follow up Dr Munoz: Received turned over. Reviewed patient's history and physical work up up to this point. She is had 1- troponin. Chest x-ray is unremarkable. Has been asymptomatic since being here in the emergency department. Has a nonischemic EKG. Had a negative stress test 2 months ago. 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 Her 2nd troponin is negative. She continues to be asymptomatic. Had a long discussion with her and her regarding her symptoms. The plan will be to discharge home and have her contact her office machine mechanic for follow- up. She will continue to take all of her medications as directed. She is not taken her evening blood pressure medicines which she will do when she returns home. She was given strict return precautions. She expressed understanding and agreement. Discharge Plan Departure Patient Disposition: Home Clinical Impression: Hyperkalemia Instructions: DI for Hyperkalemia Activity Restrictions/Additional Instructions: I do recommend that you stop taking the Entresto and contact your office machine mechanic as you are going to need another medication for your blood pressure. Return to the emergency department for new or worsening symptoms. Prescriptions: No Action atorvastatin 40 mg tablet 20 mg PO DAILY metformin 1,000 mg tablet 1,000 mg PO BID glipizide 5 mg Tablet 20 mg PO DAILY carvedilol [Coreg] 3.125 mg Tablet 3.125 mg PO BID 30 Days Qty: 60 0RF ferrous sulfate 325 mg (65 mg iron) Tablet 325 mg PO Q OTHER DAY 60 Days Qty: 30 0RF furosemide 40 mg Tablet 40 mg PO DAILY 30 Days Qty: 30 0RF Referrals: Sandrine Nguyễn MD [Primary Care Provider] - Stand Alone Forms: Patient Portal/API
[2022-10-06 14:07] LABS: Potassium 6.4 mmol/L (3.4-5.1)
[2022-10-06 14:08] LABS: Acanthocytes 1+
[2022-10-06] MEDS: ALBUTEROL 2.5 MG/3 ML NEB (ADULT) 20 MG INH (15:00)
[2022-10-06 16:38] LABS: Blood Urea Nitrogen 98 mg/dL (7-17); Calcium 8.6 mg/dL (8.4-10.2); Carbon Dioxide 22 mmol/L (22-32); Chloride 104 mmol/L (98-107); Estimated Glomerular Filt Rate 26 mL/min (>60); Glucose 223 mg/dL (80-110); HEMOLYSIS 48 (0-50); Sodium 133 mmol/L (137-145)
[2022-10-06 16:40] LABS: Potassium 6.7 mmol/L (3.4-5.1)
[2022-10-06] MEDS: INSULIN REGULAR 100 UNIT/ML 3 ML VIAL IV (17:06)
[2022-10-06] MEDS: SODIUM ZIRCONIUM CYCLOSILICATE 10 GM POWD.PACK PO (17:09)
[2022-10-06] MEDS: DEXTROSE 10 % IN WATER 250 ML 999 ML IV (17:12)
[2022-10-06 19:06] LABS: BUN Creatinine Ratio 49.7 (6-22); Blood Urea Nitrogen 98 mg/dL (7-17); Calcium 8.7 mg/dL (8.4-10.2); Carbon Dioxide 22 mmol/L (22-32); Chloride 103 mmol/L (98-107); Estimated Glomerular Filt Rate 26 mL/min (>60); Glucose 118 mg/dL (80-110); HEMOLYSIS 49 (0-50); Potassium 5.7 mmol/L (3.4-5.1); Sodium 135 mmol/L (137-145)
== END 2022-10-06 19:30 | disposition home or self-care (01) ==
PROVIDERS: Emergency Medicine; Emergency Provider Emergency Medicine; PCP Internal Medicine
DX: E87.5 Hyperkalemia (principal); I10 Essential (primary) hypertension
CPT/HCPCS: 36415; 80048; 80053; 81003; 83735; 85025; 93005; 96365; 96374; 99284; J7613

== ENCOUNTER → 2022-11-22 09:46 | Outpatient (CLI) | payer MEDICARE, OTHER, SELFPAY ==
[2022-09-13 12:40] VITALS: BMI 31.1
[2022-11-22 11:25] LABS: Hematocrit 29.6 % (36-46); Hemoglobin 9.9 g/dL (12.0-16.0)
[2022-11-22 11:27] LABS: BUN Creatinine Ratio 32.8 (6-22); Blood Urea Nitrogen 66 mg/dL (7-17); Calcium 9.3 mg/dL (8.4-10.2); Carbon Dioxide 20 mmol/L (22-32); Chloride 108 mmol/L (98-107); Estimated Glomerular Filt Rate 25 mL/min (>60); Glucose 111 mg/dL (80-110); HEMOLYSIS < 15 (0-50); Potassium 4.1 mmol/L (3.4-5.1); Sodium 138 mmol/L (137-145)
== END ==
PROVIDERS: PCP Internal Medicine; Referring Provider Student in an Organized Health Care Education/Training Program; Visit Provider Student in an Organized Health Care Education/Training Program
DX: N05.9 Unspecified nephritic syndrome with unspecified morphologic changes (principal); D64.9 Anemia, unspecified; R80.9 Proteinuria, unspecified
CPT/HCPCS: 36415; 80048; 85014; 85018

== ENCOUNTER → 2023-01-05 10:36 | Outpatient (CLI) | payer MEDICARE, OTHER, SELFPAY ==
[2022-09-13 12:40] VITALS: BMI 31.1
--- NOTE | 2023-01-05 | DI.NM.S_ITS ---
PROCEDURE: NM HAMLET PERF SPECT REST & STR Rest and exercise myocardial perfusion SPECT with gated imaging and ejection fraction RADIOPHARMACEUTICAL: 12.3 mCi Tc-99m sestamibi IV at rest and 26.1 mCi Tc-99m sestamibi IV at peak exercise. A [id number] was performed. INDICATIONS: Chronic systolic (congestive) heart failure TECHNIQUE: Radiopharmaceutical was injected at peak stress test, and also at rest. SPECT images were obtained. SPECT myocardial perfusion images were displayed in short axis, horizontal long axis, and vertical long axis views. Gated images were reviewed using [employer] software. COMPARISON: None. CARDIAC STRESS: A standard Danyel treadmill exercise tolerance test was performed by the patient under the supervision of an attending staff. The patient exercised on the Danyel protocol for 3 minutes and 0 seconds, the treadmill was not advanced to the second stage and the patient exercised for another 52 seconds; 4.8 METS; functional aerobic impairment (NINO) is +40%. Hemodynamic data: There is normal blood pressure response to exercise stress. There is an accelerated heart rate response to exercise. Patient achieved 88% rest of maximum predicted heart rate at peak exercise. Symptoms: Patient denied chest pain during exercise. EKG: Rest ECG sinus rhythm, nonspecific ST changes. Exercise ECG sinus tachycardia, [address] segment depressions to, V5 and V6. FINDINGS: Raw data: There is good myocardial labeling by radiotracer. No significant motion artifacts. There is evidence of shifting breast attenuation. [place]-yj-djezo ratio is 0.37 (normal is less than 0.38 for sestamibi tracer, and less than 0.50 for thallium tracer). Left ventricle function: Gated images demonstrate normal left ventricle wall thickening. No segmental wall motion abnormality. No transient ischemic dilation; TID is 1.04 (normal less than 1.3). The left ventricle resting end-diastolic volume is 135 mL. Left ventricle stress ejection fraction is 60%; normal values are above 45%. Myocardial perfusion: There is a small size, mild intensity distal anterior and anteroapical partially reversible defect. IMPRESSION: Abnormal study. Perfusion imaging suggests a small distal anterior wall infarct with jaja-infarct ischemia however there is a notable shifting breast attenuation. This is also occurring in the setting of normal wall motion. Dilated left ventricle based on rest LVEDV with a normal calculated ejection fraction. Abnormal exercise ECG consistent with ischemia. Reduced exercise capacity with accelerated heart rate response. Dictated by: Natividad Vieira D.O. on 01/05/2023 at 16:53 Approved by: Natividad Vieira D.O. on 01/05/2023 at 17:02
== END ==
PROVIDERS: PCP Internal Medicine; Referring Provider Internal Medicine Cardiovascular Disease; Visit Provider Internal Medicine Cardiovascular Disease
DX: I50.22 Chronic systolic (congestive) heart failure (principal); R94.39 Abnormal result of other cardiovascular function study; I25.10 Atherosclerotic heart disease of native coronary artery without angina pectoris; I25.84 Coronary atherosclerosis due to calcified coronary lesion
CPT/HCPCS: 78452; 93017; A9502

== ENCOUNTER → 2023-01-11 10:17 | Outpatient (CLI) | payer MEDICARE, OTHER, SELFPAY ==
[2022-09-13 12:40] VITALS: BMI 31.1
[2023-01-11 11:33] LABS: Hematocrit 32.4 % (36-46); Hemoglobin 10.9 g/dL (12.0-16.0); Mean Corpuscular HGB Conc 33.6 % (30-36); Mean Corpuscular Hemoglobin 27.9 PG (26-34); Platelet Count 307 X10^3/uL (150-400); Red Cell Distribution Width 14.4 % (11.6-14.8); White Blood Cell Count 4.8 X10^3/uL (4.5-11.0)
[2023-01-11 11:37] LABS: BUN Creatinine Ratio 23.5 (6-22); Blood Urea Nitrogen 48 mg/dL (7-17); Calcium 9.5 mg/dL (8.4-10.2); Carbon Dioxide 20 mmol/L (22-32); Chloride 110 mmol/L (98-107); Estimated Glomerular Filt Rate 25 mL/min (>60); Glucose 121 mg/dL (80-110); HEMOLYSIS < 15 (0-50); Potassium 5.2 mmol/L (3.4-5.1); Sodium 139 mmol/L (137-145)
[2023-01-11 11:45] LABS: HEMOLYSIS < 15 (0-50); Iron 87 ug/dL (37-170)
[2023-01-11 11:57] LABS: Percent Iron Saturation 28 % (15-50); Total Iron Binding Capacity 311 ug/dL (265-497); Transferrin 265 mg/dL (206-381)
[2023-01-11 12:12] LABS: Ferritin 14 ng/mL (11-264)
[2023-01-12 09:10] LABS: Parathyroid Hormone Int 51 pg/mL (15-65)
== END ==
PROVIDERS: PCP Internal Medicine; Referring Provider Student in an Organized Health Care Education/Training Program; Visit Provider Student in an Organized Health Care Education/Training Program
DX: N05.9 Unspecified nephritic syndrome with unspecified morphologic changes (principal); D50.0 Iron deficiency anemia secondary to blood loss (chronic); D70.9 Neutropenia, unspecified; D63.1 Anemia in chronic kidney disease; D64.9 Anemia, unspecified; E83.30 Disorder of phosphorus metabolism, unspecified; N25.81 Secondary hyperparathyroidism of renal origin; N30.00 Acute cystitis without hematuria; R80.9 Proteinuria, unspecified
CPT/HCPCS: 36415; 80048; 82728; 83540; 83550; 83970; 84100; 85027

== ENCOUNTER → 2023-01-12 12:14 | Outpatient (CLI) | payer MEDICARE, OTHER, SELFPAY ==
[2022-09-13 12:40] VITALS: BMI 31.1
[2023-01-12 12:51] LABS: Appearance Urine UA CLEAR; Bilirubin Urine UA NEGATIVE (NEGATIVE); Color Urine UA YELLOW; Glucose Urine UA NEGATIVE (Negative); Ketones Urine UA NEGATIVE (NEGATIVE); Leukocyte Esterase Urine UA NEGATIVE (NEGATIVE); Nitrite Urine UA NEGATIVE (Negative); Occult Blood Urine UA NEGATIVE (Negative); Protein Urine UA TRACE (Negative); Specific Gravity Urine UA 1.015 (1.000-1.035); Urobilinogen Urine UA 0.2 E.U./dL (0.2)
[2023-01-12 12:54] LABS: pH Urine UA 5.5 (4.5-8.0)
[2023-01-12 13:14] LABS: Bacteria Urine Occasional (0-1); RBC Urine None Seen (0-5/HPF); Squamous Epithelial Cell Urine None Seen (0-5/HPF); WBC Urine None Seen (0-5/HPF)
[2023-01-12 13:15] LABS: Culture Indicated Urine Cult Not Indicated
[2023-01-12 13:25] LABS: Creatinine Urine Random 65.1 mg/dL; Protein (Total) Urine Random 32 mg/dL (0-12); Protein Creatinine Ratio Urine 0.49 GRAM/24H
== END ==
PROVIDERS: PCP Internal Medicine; Referring Provider Student in an Organized Health Care Education/Training Program; Visit Provider Student in an Organized Health Care Education/Training Program
DX: N30.00 Acute cystitis without hematuria (principal); R80.9 Proteinuria, unspecified
CPT/HCPCS: 81001; 82570; 84156

== ENCOUNTER → 2023-01-27 07:34 | Outpatient (CLI) | payer MEDICARE, OTHER, SELFPAY ==
[2022-09-13 12:40] VITALS: BMI 31.1
--- NOTE | 2023-01-27 | DI.ECHO.S_ITS ---
[facility] +---------+ : : [address] : [place] : : : : [id number] : : : : Phone: [phone]---------+ Echocardiogram Report + + :Name: ANDREZ GAN Study Date: 01/27/2023 Height: 62 in : :[facility] ReadingLocation: Weight: 157 lb : : Gender: Female BSA: 1.7 m2 : :: 1945 Age: 77 yrs BP: 167/65 mmHg: :Reason For Study: SYSTOLIC HEART FAILURE : :Ordering Physician: ALISE, : :LITZY Performed By: Nhung Moreno : :Referring: LITZY CARRERO : + + Interpretation Summary The left ventricle is mild-moderately dilated. No significant change. The ejection fraction is estimated to be 40-45%. Previous LV ejection fraction 20 to 25%. There is improvement in LV function. The right ventricle is normal in size and function. The left atrium is moderately dilated. There is mild to moderate mitral regurgitation. Previously moderate MR. There is mild tricuspid regurgitation. Compared to the prior echo exam, there has been no change in TR severity. Compared to the prior echo exam, there has been a decrease in the severity of pulmonary hypertension. Previously PASP 58 mmHg. Now normalized. Procedure: A two-dimensional transthoracic echocardiogram with color flow and Doppler was performed. The study quality was technically adequate. Comparison is made with the echocardiogram of 09/14/2022. The patient was in sinus rhythm with heart rates between 54-75 bpm during the exam. Left Ventricle: The left ventricle is mild-moderately dilated. There is normal left ventricular wall thickness. There is no thrombus. A false chord is noted (normal variant). The ejection fraction is estimated to be 40-45%. There is mild global hypokinesis of the left ventricle. MV E/A: 0.92 Med Peak E' Tulio: 3.8 cm/sec E/E' med: 26.0. Right Ventricle: The right ventricle is normal in size and function. Atria: The left atrium is moderately dilated. There has been no significant change since the previous study. Right atrial size is normal. There is no Doppler evidence for an interatrial shunt. Mitral Valve: The mitral valve leaflets appear borderline thickened, but open well. There is mild to moderate mitral regurgitation. Aortic Valve: The aortic valve is trileaflet. The aortic valve opens well. The aortic valve is slightly calcified. There is no aortic valve stenosis. There is trace aortic regurgitation. Tricuspid Valve: The tricuspid valve is normal in structure and function. There is mild tricuspid regurgitation. The right ventricular systolic pressure is estimated to be at least 17 mmHg based on an estimated right atrial pressure of 3 mm Hg. Compared to the prior echo exam, there has been no change in TR severity. Compared to the prior echo exam, there has been a decrease in the severity of pulmonary hypertension. Pulmonic Valve: The pulmonic valve leaflets are thin and pliable; valve motion is normal. There is trace pulmonic regurgitation. Great Vessels: The aortic root is normal size. The dimensions of the ascending aorta are normal. The IVC is of normal diameter and collapses greater than 50% with a sniff. This suggests a low right atrial pressure of 3 mm Hg. Pericardium/ Pleura There is no pericardial effusion. There is no pleural effusion. MMode/2D Measurements & Calculations LVIDd: 5.9 cm LVOT diam: 2.0 cm LVIDs: 4.6 cm Ao root diam: 3.1 cm FS: 22.0 % asc Aorta Diam: 2.9 cm EPSS: 1.6 cm Ao Arch Diam (Prox Trans): 2.7 cm IVSd: 0.76 cm LVPWd: 0.76 cm LV mcgraw. diameter/BSA (cm/m^2): 3.4 LV sys. diameter/BSA (cm/m^2): 2.7 LA A2 area: 20.4 cm2 RA long axis: 4.4 cm LA A4 area: 24.5 cm2 RA area: 14.0 cm2 LA length (vol): 5.6 cm RA vol: 37.7 ml LA vol: 75.8 ml RA : 21.8 ml/m2 LA vol index: 44.0 ml/m2 IVC diam: 1.8 cm RVD1 (basal): 3.2 cm RVD2 (mid): 2.6 cm TAPSE: 2.4 cm Doppler Measurements & Calculations Ao V2 max: 189.6 cm/sec LVOT Max Tulio: 74.0 cm/sec Ao V2 mean: 127.2 cm/sec LV V1 max P.2 mmHg Ao max P.4 mmHg LV V1 VTI: 20.7 cm Ao mean P.3 mmHg ARMANDO(I,D): 1.3 cm2 Ao V2 VTI: 48.4 cm ARMANDO(V,D): 1.2 cm2 sev ratio: 0.43 ARMANDO indexed to BSA (cm^2/m^2): 0.77 MV E max tulio: 97.7 cm/sec TR max tulio: 188.7 cm/sec MV A max tulio: 106.0 cm/sec TR max P.2 mmHg MV E/A: 0.92 PA V2 max: 99.1 cm/sec Med Peak E' Tulio: 3.8 cm/sec PA V2 mean: 73.2 cm/sec E/E' med: 26.0 PA mean P.3 mmHg Lat Peak E' Tulio: 5.7 cm/sec PA pr(Accel): 31.0 mmHg E/E' lat: 17.2 E/e' average: 21.6 MV dec time: 0.25 sec SV(LVOT): 64.3 ml Reading Physician:03:40 PM
== END ==
PROVIDERS: PCP Internal Medicine; Referring Provider Nurse Practitioner Acute Care; Visit Provider Nurse Practitioner Acute Care
DX: I50.20 Unspecified systolic (congestive) heart failure (principal); I08.1 Rheumatic disorders of both mitral and tricuspid valves
CPT/HCPCS: 93306

== ENCOUNTER → 2023-02-22 10:03 | Outpatient (CLI) | payer MEDICARE, OTHER, SELFPAY ==
[2022-09-13 12:40] VITALS: BMI 31.1
[2023-02-22 11:21] LABS: Cholesterol 157 mg/dL (140-199); HDL Cholesterol 49 mg/dL (40-60); LDL Cholesterol Calculated 88 mg/dL (<100); Magnesium 2.3 mg/dL (1.6-2.3); Triglycerides 100 mg/dL (35-150)
== END ==
LOC: LAB 10:04
PROVIDERS: PCP Internal Medicine; Referring Provider Nurse Practitioner Acute Care; Visit Provider Nurse Practitioner Acute Care
DX: E78.5 Hyperlipidemia, unspecified (principal); I10 Essential (primary) hypertension; I50.22 Chronic systolic (congestive) heart failure
CPT/HCPCS: 36415; 80061; 83735

== ENCOUNTER → 2023-03-01 13:05 | Outpatient (CLI) | payer MEDICARE, OTHER, SELFPAY ==
[2022-09-13 12:40] VITALS: BMI 31.1
--- NOTE | 2023-03-01 13:06 | DI.US.S_ITS ---
PROCEDURE: US CAROTID DOPPLER BI INDICATIONS: RIGHT BRUIT TECHNIQUE: Color and pulse Doppler interrogation was performed of both carotid systems, with image documentation and velocity measurements. COMPARISON: None. FINDINGS: Stenosis calculations are based on SRU (Society of Radiologists in Ultrasound) criteria. Right side: Brachial blood pressure: 171/62 mm Hg. Common carotid artery peak systolic velocity: 82 cm/sec. Internal carotid artery peak systolic velocity: 99 cm/sec. Internal carotid artery end diastolic velocity: 23 cm/sec. External carotid artery peak systolic velocity: 124 cm/sec. ICA/CCA peak systolic ratio: 1.2 . Livingtson scale imaging description: Intimal medial thickening. Several areas of sessile calcified plaque in the right common carotid artery extending into the external carotid artery. Percent internal carotid artery stenosis: Less than 50% . Vertebral artery: Flow direction is antegrade. Left side: Brachial blood pressure: 166/65 mm Hg. Common carotid artery peak systolic velocity: 106 cm/sec. Internal carotid artery peak systolic velocity: 106 cm/sec. Internal carotid artery end diastolic velocity: 29 cm/sec. External carotid artery peak systolic velocity: 75 cm/sec. ICA/CCA peak systolic ratio: 1.0 . Livingston scale imaging description: Moderate intimal medial thickening. Scattered sessile calcific plaque in the common carotid artery. Moderate noncalcified plaque at the bifurcation. Percent internal carotid artery stenosis: Less than 50% . Vertebral artery: Flow direction is antegrade. IMPRESSION: 1. No hemodynamically significant stenosis in either carotid system. 2. Intimal medial thickening and several areas of scattered plaque in both common carotid arteries. 3. Antegrade vertebral artery flow bilaterally. Dictated by: Lien Leonard M.D. on 03/01/2023 at 23:43 Approved by: Lien Leonard M.D. on 03/01/2023 at 23:47
== END ==
LOC: US 13:05
PROVIDERS: PCP Internal Medicine; Referring Provider Nurse Practitioner Acute Care; Visit Provider Nurse Practitioner Acute Care
DX: R09.89 Other specified symptoms and signs involving the circulatory and respiratory systems (principal)
CPT/HCPCS: 93880

== ENCOUNTER → 2024-12-06 09:48 | Outpatient (CLI) | payer MEDICARE, OTHER, SELFPAY ==
[2022-09-13 12:40] VITALS: BMI 31.1
[2024-12-06 11:00] LABS: Hematocrit 32.9 % (36-46); Hemoglobin 10.7 g/dL (12.0-16.0)
[2024-12-06 11:18] LABS: Blood Urea Nitrogen 49 mg/dL (7-17); Calcium 9.1 mg/dL (8.4-10.2); Carbon Dioxide 21 mmol/L (22-32); Chloride 106 mmol/L (98-107); Estimated Glomerular Filt Rate 28 mL/min (>60); Glucose 109 mg/dL (70-99); HEMOLYSIS < 15 (0-50); Potassium 4.6 mmol/L (3.4-5.1); Sodium 138 mmol/L (137-145)
== END ==
PROVIDERS: PCP Internal Medicine; Referring Provider Student in an Organized Health Care Education/Training Program; Visit Provider Student in an Organized Health Care Education/Training Program
DX: D70.9 Neutropenia, unspecified (principal); N05.9 Unspecified nephritic syndrome with unspecified morphologic changes; D63.1 Anemia in chronic kidney disease; N25.81 Secondary hyperparathyroidism of renal origin; R80.9 Proteinuria, unspecified
CPT/HCPCS: 36415; 80048; 83970; 85014; 85018